=== PATIENT | male | born 1960 | race Caucasian/White ===

== ENCOUNTER 2016-12-15 12:26 | Inpatient (IN) | payer OTHER ==
[2016-12-15 15:21] VITALS: BMI 30.7
--- NOTE | 2016-12-15 18:33 | HP ---
CIWA Score - CIWA Score Nausea/Vomitin-Mild Nausea/No Vomiting Muscle Tremors: 4-Moderate,w/Arms Extend Anxiety: 4-Mod. Anxious/Guarded Agitation: 4-Moderately Restless Paroxysmal Sweats: 1-Minimal Palms Moist Orientation: 1-Uncertain about Date Tacttile Disturbances: 0-None Auditory Disturbances: 0-None Visual Disturbances: 0-None Headache: 0-None Present CIWA-Ar Total Score: 15 Admission ROS S - HPI Chief Complaint: withdrawal sx Allergies/Adverse Reactions: Allergies Allergy/AdvReac Type Severity Reaction Status Date / Time aspirin Allergy Severe Hives Verified 12/15/16 17:11 fish derived Allergy Severe Hives Verified 12/15/16 18:50 shellfish derived Allergy Severe Hives Verified 12/15/16 18:50 seafood Allergy Severe Hives Uncoded 12/15/16 17:11 History of Present Illness: 56 years old male with long history of alcohol dependence, cirrhosis of liver, methadone program 70 mg diabetes II hypertension, asthma arthritis knees chronic chest pain, lesion both legs, denies mental illness is admitted to detox Exam Limitations: No Limitations - Ebola screening Have you traveled outside of the country in the last 21 days: No Have you had contact with anyone from an Ebola affected area: No Have you been sick,other than usual withdrawal symptoms: No Do you have a fever: No - Review of Systems Constitutional: Chills, Changes in sleep, Weight Stable EENT: reports: Other (need eye glasses) Respiratory: reports: SOB with Exertion, Productive cough Cardiac: reports: Chest Pain (chronic chest pain since 1999) GI: reports: Nausea, Poor Fluid Intake, Indigestion, Abdominal cramping : reports: Dysuria Musculoskeletal: reports: Back Pain, Joint Pain, Muscle Pain Integumentary: reports: Lesions (both legs venous stasis) Neuro: reports: Numbness, Tingling (legs), Tremors, Weakness (legs) Endocrine: reports: No Symptoms Reported Psychiatric: reports: Judgement Intact, Mood/Affect Appropiate Other Systems: Reviewed and Negative Patient History - Patient Medical History Hx Anemia: No Hx Asthma: Yes Hx Chronic Obstructive Pulmonary Disease (COPD): No Hx Cancer: No Hx Cardiac Disorders: No (angiogram ) Hx Congestive Heart Failure: No Hx Hypertension: Yes Hx Hypercholesterolemia: No Hx Pacemaker: No HX Cerebrovascular Accident: No Hx Seizures: No Hx Dementia: No Hx Diabetes: Yes Hx Gastrointestinal Disorders: No Hx Liver Disease: Yes Hx Genitourinary Disorders: No Hx Sexually Transmitted Disorders: No Hx Renal Disease (ESRD): No Hx Thyroid Disease: No Hx Human Immunodeficiency Virus (HIV): No Hx Hepatitis C: No Hx Depression: No Hx Suicide Attempt: No Hx Bipolar Disorder: No Hx Schizophrenia: No - Patient Surgical History Past Surgical History: No Hx Neurologic Surgery: No Hx Cataract Extraction: No Hx Cardiac Surgery: No Hx Lung Surgery: No Hx Breast Surgery: No Hx Breast Biopsy: No Hx Abdominal Surgery: No Hx Appendectomy: No Hx Cholecystectomy: No Hx Genitourinary Surgery: No Hx Orthopedic Surgery: No - PPD History Previous Implant?: Yes Documented Results: Negative w/o proof Implanted On Prior R Admission?: No PPD to be Administered?: Yes - Smoking Cessation Smoking history: Never smoked Have you smoked in the past 12 months: No Cigars Per Day: 0 Initiated information on smoking cessation: No - Substance & Tx. History Hx Alcohol Use: Yes Hx Substance Use: Yes Substance Use Type: Alcohol, Opiates Hx Substance Use Treatment: Yes - Substances Abused Alcohol Route: Oral Frequency: Daily Amount used: 12oz 15 cans beer Age of first use: 17 Date of Last Use: 12/15/16 Family Disease History - Family Disease History Family Disease History: Diabetes: Mother, Sister, Other: Father (alcoholic ) Admission Physical Exam S - Vital Signs Vital Signs: Vital Signs - 24 hr 12/15/16 15:17 Temperature 98.6 F Pulse Rate 100 H Respiratory 20 Rate Blood Pressure 141/80 - Physical General Appearance: Yes: Appropriately Dressed, Mild Distress, Alcohol on Breath , Obese, Tremorous, Irritable, Sweating, Anxious HEENTM: Yes: Hearing grossly Normal, Normal ENT Inspection, Normocephalic, Normal Voice Respiratory: Yes: Chest Non-Tender, Lungs Clear, Normal Breath Sounds, No Respiratory Distress, No Accessory Muscle Use Neck: Yes: Supple, Trachea in good position Breast: Yes: Breasts Symetrical Cardiology: Yes: Regular Rhythm, S1, S2, Tachycardia Abdominal: Yes: Non Tender, Soft Genitourinary: Yes: Within Normal Limits Back: Yes: Normal Inspection Musculoskeletal: Yes: full range of Motion, Gait Steady (cane), Back pain, Muscle Pain (knees) Extremities: Yes: Normal Range of Motion, Non-Tender, Tremors Neurological: Yes: Alert, Motor Strength 5/5, Normal Mood/Affect, Normal Response Integumentary: Yes: Dry, Warm Lymphatic: Yes: Within Normal Limits - Diagnostic (1) Alcohol dependence with uncomplicated withdrawal Current Visit: Yes Status: Acute (2) Methadone maintenance therapy patient Current Visit: Yes Status: Acute Comment: 70 mg verification pending (3) Chronic pancreatitis Current Visit: Yes Status: Chronic Qualifiers: Pancreatitis type: alcohol induced Qualified Code(s): K86.0 - Alcohol-induced chronic pancreatitis (4) Diabetes mellitus, type II, insulin dependent Current Visit: Yes Status: Acute (5) Hypertension Current Visit: Yes Status: Acute Qualifiers: Hypertension type: essential hypertension Qualified Code(s): I10 - Essential (primary) hypertension (6) Neuropathy Current Visit: Yes Status: Acute (7) Use of cane as ambulatory aid Current Visit: Yes Status: Chronic (8) Asthma Current Visit: Yes Status: Acute Qualifiers: Asthma severity: mild intermittent Asthma complication type: with status asthmaticus Qualified Code(s): J45.22 - Mild intermittent asthma with status asthmaticus (9) Cirrhosis of liver Current Visit: Yes Status: Chronic Qualifiers: Hepatic cirrhosis type: alcoholic cirrhosis (10) GERD (gastroesophageal reflux disease) Current Visit: Yes Status: Acute Qualifiers: Esophagitis presence: without esophagitis Qualified Code(s): K21.9 - Gastro-esophageal reflux disease without esophagitis (11) Venous stasis dermatitis Current Visit: Yes Status: Acute Qualifiers: Laterality: bilateral Qualified Code(s): I87.2 - Venous insufficiency (chronic) (peripheral) (12) Chronic stable angina Current Visit: Yes Status: Chronic (13) Arthritis of both knees Current Visit: Yes Status: Acute Cleared for Admission BHS - Detox or Rehab [facility] Level of Care: Medically Managed Detox Regimen/Protocol: Librium [facility] Breath Alcohol Content Breath Alcohol Content: 0.059 Urine Drug Screen - Results Drug Screen Negative: No Urine Drug Screen Results: OPI-Opiates, MTD-Methadone
[2016-12-15] MEDS ORDERED: diphenhydrAMINE HCL 50 MG CAPSULE PO PRN (18:38)
[2016-12-15] MEDS ORDERED: guaiFENesin/D-METHORPHAN HB 10 ML UNIT-DOSE CUPS PO PRN (18:38)
[2016-12-15] MEDS ORDERED: MAGNESIUM CITRATE 300 ML BOTTLE PO PRN (18:38)
[2016-12-15] MEDS ORDERED: MAGNESIUM HYDROX 2400MG/30ML ORAL SUSPENSION 30 ML CUP PO PRN (18:38)
[2016-12-15] MEDS ORDERED: MENTHOL/PHENOL 1 EACH UD MM PRN (18:38)
[2016-12-15] MEDS ORDERED: LOPERAMIDE HCL 2 MG CAPSULE PO PRN (18:38)
[2016-12-15] MEDS ORDERED: P-EPHED 60MG/TRIPROLIDI 2.5MG TABLET PO PRN (18:38)
[2016-12-15] MEDS ORDERED: MAG HYDROX/AL HYDROX/SIMETH 30 ML UNIT-DOSE CUP PO PRN (18:38)
[2016-12-15] MEDS ORDERED: NITROGLYCERIN SUBLINGUAL 1/150 0.4 MG TAB SL PRN (18:43)
[2016-12-15] MEDS ORDERED: ALBUTEROL SO4 6.7 GM HFA INHALER IH PRN (18:44)
[2016-12-15] MEDS ORDERED: COLLOIDAL OATMEAL 1 BAR EACH TP PRN (18:45)
[2016-12-15] MEDS: chlordiazePOXIDE HCL 25 MG CAPSULE PO PRN (19:35)
[2016-12-15] MEDS ORDERED: NAPROXEN 500 MG TABLET (FP) PO SCH (22:00)
[2016-12-15] MEDS: GABAPENTIN 100 MG CAPSULE (FP) PO SCH (22:19)
[2016-12-15] MEDS: TAMSULOSIN HCL 0.4 MG CAP.ER.24H (FP) PO SCH (22:20)
[2016-12-15] MEDS: RANITIDINE HCL 150 MG TABLET (FP) PO SCH (22:20)
[2016-12-15] MEDS: chlordiazePOXIDE HCL 25 MG CAPSULE PO SCH (22:20)
[2016-12-15] MEDS: THIAMINE HCL 100 MG TABLET (FP) PO SCH (22:20)
[2016-12-15] MEDS: INSULIN DETEMIR 100 UNITS/ML MDV SQ SCH (22:22)
[2016-12-15] MEDS: INSULIN SLIDING SCALE (NOVOLOG) 1 VIAL SQ SCH (22:23)
[2016-12-15] MEDS: KETOCONAZOLE 2% CREAM - 60GM TUBE TP SCH (22:23)
[2016-12-16] MEDS: chlordiazePOXIDE HCL 25 MG CAPSULE PO SCH ×4 (05:15→22:18)
[2016-12-16] MEDS: GABAPENTIN 100 MG CAPSULE (FP) PO SCH ×3 (06:48→22:16)
[2016-12-16] MEDS: INSULIN SLIDING SCALE (NOVOLOG) 1 VIAL SQ SCH ×4 (07:27→22:19)
[2016-12-16] MEDS ORDERED: METHADONE HCL 10 MG TABLET PO SCH (07:30)
[2016-12-16] MEDS ORDERED: METHADONE HCL 40 MG DISPERSABLE TABLET ONE (09:12)
[2016-12-16] MEDS ORDERED: METHADONE HCL 10 MG TABLET ONE (09:12)
--- NOTE | 2016-12-16 09:48 | PN ---
S CIWA - CIWA Score Nausea/Vomitin-No Nausea/No Vomiting Muscle Tremors: 4-Moderate,w/Arms Extend Anxiety: 3 Agitation: 4-Moderately Restless Paroxysmal Sweats: 3 Orientation: 0-Oriented Tacttile Disturbances: 0-None Auditory Disturbances: 0-None Visual Disturbances: 0-None Headache: 2-Mild CIWA-Ar Total Score: 16 BHS Progress Note (SOAP) Subjective: irritable agitation sweats interrupted sleep tired weak Objective: 12/16/16 10:27 Vital Signs Temperature 98.6 F 12/16/16 06:12 Pulse Rate 95 H 12/16/16 06:12 Respiratory Rate 20 12/16/16 06:12 Blood Pressure 127/65 12/16/16 06:12 O2 Sat by Pulse Oximetry (%) Laboratory Tests 12/15/16 12/15/16 12/16/16 17:24 21:02 06:00 WBC 3.1 L RBC 3.56 L Hgb 11.7 Hct 35.3 L MCV 99.1 H MCHC 33.3 RDW 14.7 Plt Count 64 L MPV 9.2 POC Glucometer 217 195 12/16/16 06:37 WBC RBC Hgb Hct MCV MCHC RDW Plt Count MPV POC Glucometer 106 awake/alert ambulating no acute distress labs pending Assessment: 12/16/16 10:27 withdrawal sx Plan: continue detox increase fluids labs pending
[2016-12-16 09:58] LABS: MCHC 33.3 g/dl (32.0-35.9); MEAN CELL VOLUME 99.1 fl (80-96); MEAN PLT VOLUME 9.2 fl (7.5-11.1); PLATELET COUNT 64 K/MM3 (134-434); RDW 14.7 % (11.9-15.9); WHITE BLOOD COUNT 3.1 K/mm3 (4.0-10.0)
[2016-12-16] MEDS: amLODIPine BESYLATE 2.5 MG TABLET (FP) PO SCH (10:20)
[2016-12-16] MEDS: KETOCONAZOLE 2% CREAM - 60GM TUBE TP SCH ×2 (10:20→22:19)
[2016-12-16] MEDS: RANITIDINE HCL 150 MG TABLET (FP) PO SCH ×2 (10:20→22:16)
[2016-12-16] MEDS: METHADONE 40 MG, METHADONE 30 MG PO SCH (10:21)
[2016-12-16] MEDS: LIDOCAINE HCL 5% TOP OINTMENT 50 GM TUBE TP SCH (10:22)
[2016-12-16 10:25] LABS: ALBUMIN 2.6 g/dl (3.4-5.0); ALK PHOS 212 U/L (45-117); ANION GAP 12 (8-16); BILIRUBIN,TOTAL 1.3 mg/dL (0.2-1.0); CALCIUM 8.1 mg/dL (8.5-10.1); CO2 23 mmol/L (21-32); CREATININE 0.7 mg/dL (0.7-1.3); GLUCOSE,RANDOM 281 mg/dL (74-106); SGOT/AST 99 U/L (15-37); SGPT/ALT 63 U/L (12-78); TOT PROT 8.1 g/dl (6.4-8.2)
[2016-12-16] MEDS: PRENATAL VITAMINS W/ FOLIC ACID TABLET (FP) PO SCH (10:25)
[2016-12-16] MEDS ORDERED: INSULIN (NOVOLOG) ASPART 100 UNITS/ML 10ML VIAL ONE ×3 (11:33→22:04)
--- NOTE | 2016-12-16 12:29 | CONSULT ---
[facility] Psychiatric Consult - Data Date of interview: 12/16/16 Admission source: [facility] Identifying data: First admission [facility] Care for this 56 y/o male seeking detox treatment for alcohol and opioid dependence.Patient is ,a father of six,domiciled,unemployed and supported on SSI benefits. Substance Abuse History: - Smoking Cessation. Smoking history: Never smoked. Have you smoked in the past 12 months: No. Cigars Per Day: 0. Initiated information on smoking cessation: No. - Substance & Tx. History. Hx Alcohol Use: Yes. Hx Substance Use: Yes. Substance Use Type: Alcohol, Opiates. Hx Substance Use Treatment: Yes. - Substances Abused. Alcohol. Route: Oral. Frequency: Daily. Amount used: 12oz 15 cans beer. Age of first use: 17. Date of Last Use: 12/15/16. Confirmed by patient. Medical History: Bronchial asthma,diabetes mellitus,hypertension,GERD,arthritis (both knees),cirrhosis of the liver,psoriasis,benign prostatic hyperplasia (self -report) and chronic pancreatitis.Ambulates with a cane. Psychiatric History: Patient admits to one psychiatric hospitalization (1995) at [facility] in [facility].Diagnosed with MDD.Not on any medication other than methadone (70 mg/day) from the [facility] MMTP program located in [place].Mr Hernandez denies history of suicide attempts. Physical/Sexual Abuse/Trauma History: Patient denies. Additional Comment: Urine Drug Screen Results: OPI-Opiates, MTD-Methadone.Noted. Mental Status Exam - Mental Status Exam Alert and Oriented to: Time, Place, Person Cognitive Function: Good Patient Appearance: Well Groomed Mood: Hopeful, Euthymic Affect: Appropriate, Normal Range Patient Behavior: Fatigued, Appropriate, Cooperative Speech Pattern: Clear, Appropriate Voice Loudness: Normal Thought Process: Intact, Goal Oriented Thought Disorder: Not Present Hallucinations: Denies Suicidal Ideation: Denies Homicidal Ideation: Denies Insight/Judgement: Poor Sleep: Poorly, Difficulty falling asleep (declines seroquel,ambien and trazodone ) Muscle strength/Tone: Normal Gait/Station: Other (moves around with a cane) Psychiatric Findings - Problem List ([place] 1, 2,3) (1) Alcohol dependence with uncomplicated withdrawal Current Visit: Yes Status: Acute (2) Opioid dependence on agonist therapy Current Visit: Yes Status: Acute (3) Arthritis of both knees Current Visit: Yes Status: Chronic (4) Asthma Current Visit: Yes Status: Chronic Qualifiers: Asthma severity: mild intermittent Asthma complication type: with status asthmaticus Qualified Code(s): J45.22 - Mild intermittent asthma with status asthmaticus (5) Diabetes mellitus, type II, insulin dependent Current Visit: Yes Status: Chronic (6) GERD (gastroesophageal reflux disease) Current Visit: Yes Status: Chronic Qualifiers: Esophagitis presence: without esophagitis Qualified Code(s): K21.9 - Gastro-esophageal reflux disease without esophagitis (7) Hypertension Current Visit: Yes Status: Chronic Qualifiers: Hypertension type: essential hypertension Qualified Code(s): I10 - Essential (primary) hypertension (8) Neuropathy Current Visit: Yes Status: Chronic (9) Chronic pancreatitis Current Visit: Yes Status: Chronic Qualifiers: Pancreatitis type: alcohol induced Qualified Code(s): K86.0 - Alcohol-induced chronic pancreatitis (10) Cirrhosis of liver Current Visit: Yes Status: Chronic Qualifiers: Hepatic cirrhosis type: alcoholic cirrhosis (11) Use of cane as ambulatory aid Current Visit: Yes Status: Chronic (12) Insomnia Current Visit: Yes Status: Acute - Initial Treatment Plan Initial Treatment Plan: Psychoedcation.Detoxification.Remeron 7.5 mg po hs.Side effects/benefits discussed with patient.Agreed with careplan.Observation.
[2016-12-16] MEDS: THIAMINE HCL 100 MG TABLET (FP) PO SCH (22:16)
[2016-12-16] MEDS: MIRTAZAPINE 15 MG TABLET (FP) PO SCH (22:16)
[2016-12-16] MEDS: TAMSULOSIN HCL 0.4 MG CAP.ER.24H (FP) PO SCH (22:16)
[2016-12-16] MEDS: INSULIN DETEMIR 100 UNITS/ML MDV SQ SCH (22:17)
--- NOTE | 2016-12-16 23:39 | EKG ---
Test Reason : Blood Pressure : / mmHG Vent. Rate : 081 BPM Atrial Rate : 081 BPM P-R Int : 132 ms QRS Dur : 084 ms QT Int : 430 ms P-R-T Axes : 053 021 022 degrees QTc Int : 499 ms NORMAL SINUS RHYTHM PROLONGED QT ABNORMAL ECG NO PREVIOUS ECGS AVAILABLE Confirmed by MORENA CORNELIUS MD ([id number]) on 12/16/2016 11:39:02 PM Referred By: Confirmed By:MORENA CORNELIUS MD
[2016-12-17] MEDS ORDERED: METHADONE HCL 10 MG TABLET ONE (04:13)
[2016-12-17] MEDS ORDERED: METHADONE HCL 40 MG DISPERSABLE TABLET ONE (04:13)
[2016-12-17] MEDS: chlordiazePOXIDE HCL 25 MG CAPSULE PO SCH ×3 (05:47→17:55)
[2016-12-17] MEDS: METHADONE 40 MG, METHADONE 30 MG PO SCH (05:47)
[2016-12-17] MEDS: GABAPENTIN 100 MG CAPSULE (FP) PO SCH ×3 (05:47→22:14)
[2016-12-17] MEDS ORDERED: INSULIN (NOVOLOG) ASPART 100 UNITS/ML 10ML VIAL ONE ×4 (07:38→22:13)
[2016-12-17] MEDS: INSULIN SLIDING SCALE (NOVOLOG) 1 VIAL SQ SCH ×4 (07:39→22:13)
[2016-12-17] MEDS: chlordiazePOXIDE HCL 25 MG CAPSULE PO PRN (09:32)
[2016-12-17] MEDS: PRENATAL VITAMINS W/ FOLIC ACID TABLET (FP) PO SCH (09:32)
[2016-12-17] MEDS: RANITIDINE HCL 150 MG TABLET (FP) PO SCH ×2 (09:32→22:14)
[2016-12-17] MEDS: amLODIPine BESYLATE 2.5 MG TABLET (FP) PO SCH (09:32)
[2016-12-17] MEDS: LIDOCAINE HCL 5% TOP OINTMENT 50 GM TUBE TP SCH (09:35)
[2016-12-17] MEDS: KETOCONAZOLE 2% CREAM - 60GM TUBE TP SCH ×2 (09:36→22:16)
[2016-12-17] MEDS ORDERED: ONDANSETRON *ODT* 4 MG TABLET SL PRN (10:17)
[2016-12-17] MEDS: TAMSULOSIN HCL 0.4 MG CAP.ER.24H (FP) PO SCH (22:14)
[2016-12-17] MEDS: THIAMINE HCL 100 MG TABLET (FP) PO SCH (22:14)
[2016-12-17] MEDS: MIRTAZAPINE 15 MG TABLET (FP) PO SCH (22:14)
[2016-12-17] MEDS: INSULIN DETEMIR 100 UNITS/ML MDV SQ SCH (22:15)
[2016-12-17] MEDS: chlordiazePOXIDE 5 MG CAPSULE PO SCH (22:25)
[2016-12-18] MEDS ORDERED: METHADONE HCL 40 MG DISPERSABLE TABLET ONE (04:21)
[2016-12-18] MEDS ORDERED: METHADONE HCL 10 MG TABLET ONE (04:22)
[2016-12-18] MEDS: chlordiazePOXIDE 5 MG CAPSULE PO SCH ×3 (04:48→18:11)
[2016-12-18] MEDS: GABAPENTIN 100 MG CAPSULE (FP) PO SCH ×3 (06:06→22:42)
[2016-12-18] MEDS: METHADONE 40 MG, METHADONE 30 MG PO SCH (06:06)
[2016-12-18] MEDS ORDERED: INSULIN (NOVOLOG) ASPART 100 UNITS/ML 10ML VIAL ONE ×4 (07:26→23:10)
[2016-12-18] MEDS: INSULIN SLIDING SCALE (NOVOLOG) 1 VIAL SQ SCH ×4 (07:29→22:46)
--- NOTE | 2016-12-18 09:52 | PN ---
S Progress Note (SOAP) Subjective: ALERT,IRRITABLE,INTERRUPTED SLEEP,TREMOR Objective: 12/18/16 09:51 Vital Signs Temperature 98.6 F 12/18/16 06:15 Pulse Rate 107 H 12/18/16 06:15 Respiratory Rate 18 12/18/16 06:15 Blood Pressure 153/83 12/18/16 06:15 O2 Sat by Pulse Oximetry (%) Laboratory Last Values WBC 3.1 K/mm3 (4.0-10.0) L 12/16/16 06:00 RBC 3.56 M/mm3 (4.00-5.60) L 12/16/16 06:00 Hgb 11.7 GM/dL (11.7-16.9) 12/16/16 06:00 Hct 35.3 % (35.4-49) L 12/16/16 06:00 MCV 99.1 fl (80-96) H 12/16/16 06:00 MCHC 33.3 g/dl (32.0-35.9) 12/16/16 06:00 RDW 14.7 % (11.9-15.9) 12/16/16 06:00 Plt Count 64 K/MM3 (134-434) L 12/16/16 06:00 MPV 9.2 fl (7.5-11.1) 12/16/16 06:00 Sodium 135 mmol/L (136-145) L 12/16/16 06:00 Potassium 3.7 mmol/L (3.5-5.1) 12/16/16 06:00 Chloride 100 mmol/L (98-107) 12/16/16 06:00 Carbon Dioxide 23 mmol/L (21-32) 12/16/16 06:00 Anion Gap 12 (8-16) 12/16/16 06:00 BUN 10 mg/dL (7-18) 12/16/16 06:00 Creatinine 0.7 mg/dL (0.7-1.3) 12/16/16 06:00 Creat Clearance w eGFR > 60 (>60) 12/16/16 06:00 POC Glucometer 289 UNITS (()) 12/18/16 04:44 Random Glucose 281 mg/dL (74-106) H 12/16/16 06:00 Calcium 8.1 mg/dL (8.5-10.1) L 12/16/16 06:00 Total Bilirubin 1.3 mg/dL (0.2-1.0) H 12/16/16 06:00 AST 99 U/L (15-37) H 12/16/16 06:00 ALT 63 U/L (12-78) 12/16/16 06:00 Alkaline Phosphatase 212 U/L (45-117) H 12/16/16 06:00 Total Protein 8.1 g/dl (6.4-8.2) 12/16/16 06:00 Albumin 2.6 g/dl (3.4-5.0) L 12/16/16 06:00 RPR Titer Nonreactive (NONREACTIVE) 12/16/16 06:00 Assessment: 12/18/16 09:51 WITHDRAWAL SYMPTOM Plan: CONTINUE DETOX,BGM MONITORING,DISCHARGE IN AM
[2016-12-18] MEDS: RANITIDINE HCL 150 MG TABLET (FP) PO SCH ×2 (10:22→22:42)
[2016-12-18] MEDS: PRENATAL VITAMINS W/ FOLIC ACID TABLET (FP) PO SCH (10:22)
[2016-12-18] MEDS: KETOCONAZOLE 2% CREAM - 60GM TUBE TP SCH ×2 (10:23→22:40)
[2016-12-18] MEDS: LIDOCAINE HCL 5% TOP OINTMENT 50 GM TUBE TP SCH (10:23)
[2016-12-18] MEDS: amLODIPine BESYLATE 2.5 MG TABLET (FP) PO SCH (11:09)
[2016-12-18 21:00] LABS: URINE APPEARANCE CLEAR; URINE BILIRUBIN NEGATIVE (NEGATIVE); URINE COLOR YELLOW; URINE GLUCOSE (UA) 3+ (NEGATIVE); URINE KETONE NEGATIVE (NEGATIVE); URINE LEUK ESTERASE NEGATIVE (NEGATIVE); URINE NITRITE NEGATIVE (NEGATIVE); URINE PROTEIN NEGATIVE (NEGATIVE); URINE UROBILINOGEN NEGATIVE E.U./dl (0.2-1.0)
[2016-12-18 21:06] LABS: URINE BLOOD 1+ (NEGATIVE)
[2016-12-18 21:13] LABS: URINE RBC 1 /hpf (0-3); URINE WBC 1 /hpf (3-5)
[2016-12-18] MEDS: TAMSULOSIN HCL 0.4 MG CAP.ER.24H (FP) PO SCH (22:40)
[2016-12-18] MEDS: MIRTAZAPINE 15 MG TABLET (FP) PO SCH (22:40)
[2016-12-18] MEDS: chlordiazePOXIDE HCL 10 MG CAPSULE PO SCH (22:40)
[2016-12-18] MEDS: THIAMINE HCL 100 MG TABLET (FP) PO SCH (22:40)
[2016-12-18] MEDS: INSULIN DETEMIR 100 UNITS/ML MDV SQ SCH (23:26)
[2016-12-19] MEDS ORDERED: METHADONE HCL 40 MG DISPERSABLE TABLET ONE (04:13)
[2016-12-19] MEDS ORDERED: METHADONE HCL 10 MG TABLET ONE (04:13)
[2016-12-19] MEDS: chlordiazePOXIDE HCL 10 MG CAPSULE PO SCH ×2 (05:10→10:38)
[2016-12-19] MEDS: METHADONE 40 MG, METHADONE 30 MG PO SCH (06:40)
[2016-12-19] MEDS: GABAPENTIN 100 MG CAPSULE (FP) PO SCH (06:40)
[2016-12-19] MEDS ORDERED: INSULIN (NOVOLOG) ASPART 100 UNITS/ML 10ML VIAL ONE ×2 (07:29→11:19)
[2016-12-19] MEDS: INSULIN SLIDING SCALE (NOVOLOG) 1 VIAL SQ SCH ×2 (07:38→11:20)
--- NOTE | 2016-12-19 08:43 | PN ---
S Progress Note (SOAP) Subjective: ALERT,NO COMPLAINT Objective: 12/19/16 08:41 Vital Signs Temperature 98.2 F 12/19/16 06:34 Pulse Rate 89 12/19/16 06:34 Respiratory Rate 16 12/19/16 06:34 Blood Pressure 129/66 12/19/16 06:34 O2 Sat by Pulse Oximetry (%) BGM 289 Assessment: 12/19/16 08:42 DETOX COMPLETED,NO WITHDRAWAL SYMPTOM Plan: DISCHARGE TODAY,FOLLOW UP WITH AFTER CARE PROGRAM ARRANGEMENT AND PMD FOR MEDICAL PROBLEM
--- NOTE | 2016-12-19 08:44 | DS ---
[facility] Detox Discharge Summary Admission Date: 12/15/16 Discharge Date: 12/19/16 - History Present History: Alcohol Dependence, Opioid Dependence, MMTP Additional Comments: FOLLOW UP WITH AFTER CARE PROGRAM ARRANGEMENT AND PMD FOR MEDICAL PROBLEM Pertinent Past History: CHRONIC PANCREATITIS TYPE 2 DM HYPERTENSION ASTHMA NEUROPATHY USE CAN AMBULATORY AID - Physical Exam Results Vital Signs: Vital Signs Temperature 98.2 F 12/19/16 06:34 Pulse Rate 89 12/19/16 06:34 Respiratory Rate 16 12/19/16 06:34 Blood Pressure 129/66 12/19/16 06:34 O2 Sat by Pulse Oximetry (%) Pertinent Admission Physical Exam Findings: WITHDRAWAL SYMPTOM - Treatment Hospital Course: Detox Protocol Followed, Detoxed Safely, Responded well, Discharged Condition Good Patient has Accepted a Rehab Referral to: DECLINED - Medication Discharge Medications: Ambulatory Orders Insulin (Novolog) [Novolog Flexpen] 0 units SQ ACHS 12/15/16 Insulin Glargine,Hum.rec.anlog [Lantus Solostar PEN (NF)] 50 units SQ DAILY 11/28 Ketoconazole 2% Cream [Nizoral 2% Cream -] 1 applic TP BID 12/15/16 Omeprazole 20 mg PO DAILY 12/15/16 Mirtazapine [Remeron -] 15 mg PO DAILY #30 tablet 12/16/16 Albuterol Sulfate Inhaler - [Ventolin HFA Inhaler -] 2 puff IH Q4H PRN #1 inhaler 12/19/16 Amlodipine Besylate [Norvasc -] 2.5 mg PO DAILY #30 tab 12/19/16 Gabapentin [Neurontin -] 300 mg PO TID #90 tab 12/19/16 Tamsulosin HCl [Flomax -] 0.4 mg PO HS #30 tab 12/19/16 - AMA Did Patient Leave Against Medical Advice: No
[2016-12-19 09:52] VITALS: BP 134/83; PULSE 78; TEMP 97.9
[2016-12-19] MEDS: PRENATAL VITAMINS W/ FOLIC ACID TABLET (FP) PO SCH (10:38)
[2016-12-19] MEDS: RANITIDINE HCL 150 MG TABLET (FP) PO SCH (10:38)
[2016-12-19] MEDS: amLODIPine BESYLATE 2.5 MG TABLET (FP) PO SCH (10:38)
[2016-12-19] MEDS: LIDOCAINE HCL 5% TOP OINTMENT 50 GM TUBE TP SCH (10:40)
[2016-12-19] MEDS: KETOCONAZOLE 2% CREAM - 60GM TUBE TP SCH (10:41)
== END 2016-12-19 13:05 | disposition home or self-care (01) | DRG 773 ==
LOC: YASAS 12:26 → Y6N 18:54
PROVIDERS: ADMIT Internal Medicine Addiction Medicine; ATTEND Internal Medicine Addiction Medicine
PROC: HZ2ZZZZ Detoxification Services for Substance Abuse Treatment (ICD-10-PCS; principal; 2016-12-19)
DX: F11.20 Opioid dependence, uncomplicated (principal); F10.230 Alcohol dependence with withdrawal, uncomplicated; G47.00 Insomnia, unspecified; J45.22 Mild intermittent asthma with status asthmaticus; I25.119 Atherosclerotic heart disease of native coronary artery with unspecified angina pectoris; I10 Essential (primary) hypertension; E11.9 Type 2 diabetes mellitus without complications; Z79.4 Long term (current) use of insulin; K62.9 Disease of anus and rectum, unspecified; K21.9 Gastro-esophageal reflux disease without esophagitis; K86.0 Alcohol-induced chronic pancreatitis; K70.30 Alcoholic cirrhosis of liver without ascites; I87.2 Venous insufficiency (chronic) (peripheral); M13.862 Other specified arthritis, left knee; M13.861 Other specified arthritis, right knee; R26.2 Difficulty in walking, not elsewhere classified
CPT/HCPCS: 36415; 80053; 81003; 81015; 85027; 86593; 93005; 93010

== ENCOUNTER 2017-06-26 07:47 | Inpatient (IN) | payer OTHER ==
[2017-06-26 10:33] VITALS: BMI 32.1
--- NOTE | 2017-06-26 13:36 | HP ---
CIWA Score - CIWA Score Nausea/Vomitin Muscle Tremors: 4-Moderate,w/Arms Extend Anxiety: 3 Agitation: 4-Moderately Restless Paroxysmal Sweats: 3 Orientation: 0-Oriented Tacttile Disturbances: 1-Very Mild Itch/Numbness Auditory Disturbances: 0-None Visual Disturbances: 0-None Headache: 1-Very Mild CIWA-Ar Total Score: 19 Admission ROS BHS - HPI Chief Complaint: alcohol withdrawal sx Allergies/Adverse Reactions: Allergies Allergy/AdvReac Type Severity Reaction Status Date / Time aspirin Allergy Severe Hives Verified 06/26/17 10:35 seafood Allergy Severe Hives Uncoded 06/26/17 10:35 History of Present Illness: 56 yo m withh/o opioid dependence on MMTP 15mg dialy LDM today , chronic alcoholism was lasst detoxed [facility] recieved some libirum but signed out AMA and did not compelte detox. PMHX hep c, cirrhosis w ascites , astma, trauma left ankle s/p surgery, depression ,anxiety, insomnia, HTN, DM taking meds and vitiamins. h/o alcohol withdrawwl seizures 6 months ago but gives h/o epilepsy as child , no h/o DTS, no suicide attempts no suicidal ideations. Would like to complete detox to go to rehab, has his own apartmetn where he lives alone Exam Limitations: No Limitations - Ebola screening Have you traveled outside of the country in the last 21 days: No Have you had contact with anyone from an Ebola affected area: No Have you been sick,other than usual withdrawal symptoms: No Do you have a fever: No - Review of Systems Constitutional: Chills, Diaphoresis, Weight Stable EENT: reports: No Symptoms Reported Respiratory: reports: No Symptoms reported Cardiac: reports: No Symptoms Reported GI: reports: Nausea, Poor Appetite, Poor Fluid Intake, Abdominal cramping ( ascites s/p paracentesis - signed out ama) : reports: No Symptoms Reported Integumentary: reports: Flushing, Sweating Neuro: reports: Headache, Numbness, Seizure, Tingling, Tremors, Weakness, Unsteady Gait Endocrine: reports: No Symptoms Reported Hematology: reports: No Symptoms Reported Psychiatric: reports: Judgement Intact, Mood/Affect Appropiate, Orientated x3, Anxious, Depressed Other Systems: Reviewed and Negative Patient History - Patient Medical History Hx Anemia: No Hx Asthma: Yes Hx Chronic Obstructive Pulmonary Disease (COPD): No Hx Cancer: No Hx Cardiac Disorders: Yes (angina) Hx Congestive Heart Failure: No Hx Hypertension: Yes Hx Hypercholesterolemia: No Hx Pacemaker: No HX Cerebrovascular Accident: No Hx Seizures: Yes (alcohol related-last episode was in 01/2017) Hx Dementia: No Hx Diabetes: Yes (IDDM) Hx Gastrointestinal Disorders: Yes (acid reflux) Hx Liver Disease: Yes Hx Genitourinary Disorders: No Hx Sexually Transmitted Disorders: No Hx Renal Disease (ESRD): No Hx Thyroid Disease: No Hx Human Immunodeficiency Virus (HIV): No Hx Hepatitis C: Yes Hx Depression: Yes (not on any meds) Hx Suicide Attempt: No Hx Bipolar Disorder: No Hx Schizophrenia: No - Patient Surgical History Past Surgical History: Yes Hx Neurologic Surgery: No Hx Cataract Extraction: No Hx Cardiac Surgery: No Hx Lung Surgery: No Hx Breast Surgery: No Hx Breast Biopsy: No Hx Abdominal Surgery: No Hx Appendectomy: No Hx Cholecystectomy: No Hx Genitourinary Surgery: No Hx Section: No Hx Orthopedic Surgery: Yes (fx, left ankle) Anesthesia Reaction: No - PPD History Previous Implant?: Yes Documented Results: Negative w/proof Implanted On Prior R Admission?: Yes Date: 12/17/16 Results: 0 mm PPD to be Administered?: No - Reproductive History Patient is a Female of Child Bearing Age (11 -55 yrs old): No Patient : No - Smoking Cessation Smoking history: Former smoker Have you smoked in the past 12 months: No Aproximately how many cigarettes per day: 1,993 If you are a former smoker, when did you quit?: 1992 Cigars Per Day: 0 Hx Chewing Tobacco Use: No Initiated information on smoking cessation: No 'Breaking Loose' booklet given: 06/26/17 - Substance & Tx. History Hx Alcohol Use: Yes Hx Substance Use: Yes Substance Use Type: Alcohol, Heroin, Opiates, Prescribed Hx Substance Use Treatment: Yes (MMTP) - Substances Abused Alcohol-beer Route: Oral Frequency: Daily Amount used: 6-10 (22 oz.) Age of first use: 15 Date of Last Use: 06/25/17 Family Disease History - Family Disease History Family Disease History: Diabetes: Mother, Sister, Other: Father (alcoholic ) Admission Physical Exam BHS - Vital Signs Vital Signs: Vital Signs - 24 hr 06/26/17 10:31 Temperature 96.4 F L Pulse Rate 107 H Respiratory 20 Rate Blood Pressure 148/71 - Physical General Appearance: Yes: Nourished, Appropriately Dressed, Disheveled, Mild Distress, Obese, Tremorous, Irritable, Sweating, Anxious HEENTM: Yes: Within Normal Limits, EOMI, Hearing grossly Normal, Normal ENT Inspection, Normocephalic, Normal Voice, HOLGER, Pharynx Normal Respiratory: Yes: Within Normal Limits, Chest Non-Tender, Lungs Clear, Normal Breath Sounds, No Respiratory Distress, No Accessory Muscle Use Neck: Yes: Within Normal Limits, No masses,lesions,Nodules, Supple, Trachea in good position Breast: Yes: Breast Exam Deferred Cardiology: Yes: Within Normal Limits, Regular Rhythm, Regular Rate, S1, S2 Abdominal: Yes: Normal Bowel Sounds, Non Tender, Soft, Increased Bowel Sounds, Protuberent, Distended, Hernia (umbeilical), Surgical Scar Genitourinary: Yes: Within Normal Limits Back: Yes: Within Normal Limits, Normal Inspection Musculoskeletal: Yes: Within Normal Limits, full range of Motion Extremities: Yes: Normal Capillary Refill, Normal Inspection, Normal Range of Motion, Non-Tender, Tremors Neurological: Yes: import coordinator II-XII NML intact, Fully Oriented, Alert, Motor Strength 5/5, Normal Response Integumentary: Yes: Normal Color, Warm, Diaphoresis, Moist, Track Dunn (old on arms has not injected since 1995), Other (psoriasis on back and lower extremities bilaterally.) Lymphatic: Yes: Within Normal Limits - Addiitonal Findings: withdrawal sx - Diagnostic (1) Alcohol dependence with uncomplicated withdrawal Current Visit: Yes Status: Acute (2) Methadone maintenance therapy patient Current Visit: Yes Status: Chronic Comment: 70 mg verification pending (3) Arthritis of both knees Current Visit: No Status: Chronic (4) Asthma Current Visit: No Status: Chronic Qualifiers: Asthma severity: mild intermittent Asthma complication type: with status asthmaticus (5) Chronic pancreatitis Current Visit: No Status: Chronic Qualifiers: Pancreatitis type: alcohol induced Qualified Code(s): K86.0 - Alcohol-induced chronic pancreatitis; K86.0 - Alcohol-induced chronic pancreatitis; K86.0 - Alcohol-induced chronic pancreatitis; K86.0 - Alcohol- induced chronic pancreatitis (6) Chronic stable angina Current Visit: No Status: Chronic (7) Cirrhosis of liver Current Visit: No Status: Chronic Qualifiers: Hepatic cirrhosis type: alcoholic cirrhosis (8) Diabetes mellitus, type II, insulin dependent Current Visit: Yes Status: Acute (9) GERD (gastroesophageal reflux disease) Current Visit: No Status: Chronic Qualifiers: Esophagitis presence: without esophagitis Qualified Code(s): K21.9 - Gastro-esophageal reflux disease without esophagitis; K21.9 - Gastro- esophageal reflux disease without esophagitis; K21.9 - Gastro-esophageal reflux disease without esophagitis (10) Hypertension Current Visit: No Status: Chronic Qualifiers: Hypertension type: essential hypertension Qualified Code(s): I10 - Essential (primary) hypertension; I10 - Essential (primary) hypertension; I10 - Essential (primary) hypertension (11) Neuropathy Current Visit: No Status: Chronic (12) Use of cane as ambulatory aid Current Visit: Yes Status: Acute Cleared for Admission S - Detox or Rehab [facility] Level of Care: Medically Managed Detox Regimen/Protocol: Librium [facility] Breath Alcohol Content Breath Alcohol Content: 0 Urine Drug Screen - Results Drug Screen Negative: No Urine Drug Screen Results: BZO-Benzodiazepines, MTD-Methadone
[2017-06-26] MEDS ORDERED: MAGNESIUM CITRATE 300 ML BOTTLE PO PRN (13:41)
[2017-06-26] MEDS ORDERED: MAGNESIUM HYDROX 2400MG/30ML ORAL SUSPENSION 30 ML CUP PO PRN (13:41)
[2017-06-26] MEDS ORDERED: hydrOXYzine PAMOATE 50 MG CAPSULE (FP) PO PRN (13:41)
[2017-06-26] MEDS ORDERED: MAG HYDROX/AL HYDROX/SIMETH 30 ML UNIT-DOSE CUP PO PRN (13:41)
[2017-06-26] MEDS ORDERED: LOPERAMIDE HCL 2 MG CAPSULE PO PRN (13:41)
[2017-06-26] MEDS ORDERED: chlordiazePOXIDE HCL 25 MG CAPSULE PO PRN (13:41)
[2017-06-26] MEDS ORDERED: MENTHOL/PHENOL 1 EACH UD MM PRN (13:41)
[2017-06-26] MEDS ORDERED: P-EPHED 60MG/TRIPROLIDI 2.5MG TABLET PO PRN (13:41)
[2017-06-26] MEDS ORDERED: guaiFENesin/D-METHORPHAN HB 10 ML UNIT-DOSE CUPS PO PRN (13:41)
[2017-06-26] MEDS ORDERED: ALBUTEROL SO4 18 GM HFA INHALER IH PRN (13:44)
[2017-06-26] MEDS ORDERED: NITROGLYCERIN SUBLINGUAL 1/150 0.4 MG TAB SL PRN (13:44)
[2017-06-26] MEDS ORDERED: chlordiazePOXIDE HCL 25 MG CAPSULE PO ONE (15:01)
[2017-06-26] MEDS ORDERED: INSULIN SLIDING SCALE (NOVOLOG) 1 VIAL SQ SCH ×3 (16:30)
[2017-06-26] MEDS: chlordiazePOXIDE HCL 25 MG CAPSULE PO SCH ×2 (17:27→22:18)
[2017-06-26] MEDS: amLODIPine BESYLATE 5 MG TABLET (FP) PO SCH (17:27)
[2017-06-26] MEDS: FOLIC ACID 1 MG TABLET (FP) PO SCH (17:27)
[2017-06-26] MEDS: HYDROCORTISONE 1% TOPICAL CREAM 30 GM TUBE TP SCH (17:28)
[2017-06-26] MEDS: INSULIN SLIDING SCALE (NOVOLOG) 1 VIAL SQ SCH (17:31)
[2017-06-26 18:01] LABS: MCH 30.7 pg (25.7-33.7); MCHC 32.9 g/dl (32.0-35.9); MEAN CELL VOLUME 93.2 fl (80-96); RDW 15.9 % (11.9-15.9)
[2017-06-26 18:18] LABS: ALBUMIN 2.1 g/dl (3.4-5.0); ANION GAP 8 (8-16); CALCIUM 8.1 mg/dL (8.5-10.1); CO2 26 mmol/L (21-32); CREATININE 0.9 mg/dL (0.7-1.3); GLUCOSE,RANDOM 285 mg/dL (74-106); SGOT/AST 117 U/L (15-37); SGPT/ALT 54 U/L (12-78); WHITE BLOOD COUNT 1.8 K/mm3 (4.0-10.0)
[2017-06-26 18:19] LABS: ALK PHOS 164 U/L (45-117); BILIRUBIN,TOTAL 2.1 mg/dL (0.2-1.0); TOT PROT 7.4 g/dl (6.4-8.2)
[2017-06-26 18:50] LABS: PLATELET COMMENT2 NO CLOTTING DETECTED; PLATELET COMMENT3 UNABLE TO ENUMERATE; PLATELET ESTIMATE MARKEDLY DECREASED (NORMAL)
[2017-06-26 18:59] LABS: TOTAL CELLS COUNTED 100
[2017-06-26 20:26] LABS: URINE APPEARANCE CLEAR; URINE BILIRUBIN NEGATIVE (NEGATIVE); URINE BLOOD NEGATIVE (NEGATIVE); URINE COLOR AMBER; URINE GLUCOSE (UA) NEGATIVE (NEGATIVE); URINE KETONE TRACE (NEGATIVE); URINE NITRITE NEGATIVE (NEGATIVE)
[2017-06-26 20:41] LABS: URINE PROTEIN 1+ (NEGATIVE)
[2017-06-26 20:52] LABS: URINE BACTERIA RARE /hpf (NONE SEEN); URINE RBC 4 /hpf (0-3); URINE WBC <1 /hpf (3-5)
[2017-06-26 21:35] LABS: URINE LEUK ESTERASE Negative (NEGATIVE)
[2017-06-26] MEDS ORDERED: PATIENT'S OWN MEDICATION (NON-FORMULARY) (Insulin Glargine,Hum.Rec.Anlog [Toujeo Solostar] SQ SCH (22:00)
[2017-06-26] MEDS: MIRTAZAPINE 15 MG TABLET (FP) PO SCH (22:17)
[2017-06-26] MEDS: TAMSULOSIN HCL 0.4 MG CAP.ER.24H (FP) PO SCH (22:17)
[2017-06-26] MEDS: INSULIN DETEMIR 100 UNITS/ML MDV SQ SCH (22:18)
[2017-06-27] MEDS ORDERED: METHADONE HCL 5 MG TABLET ONE (04:09)
[2017-06-27] MEDS ORDERED: METHADONE HCL 10 MG TABLET ONE (04:09)
[2017-06-27] MEDS: METHADONE 10 MG, METHADONE 5 MG PO SCH (05:33)
[2017-06-27] MEDS: chlordiazePOXIDE HCL 25 MG CAPSULE PO SCH ×4 (05:33→22:24)
[2017-06-27] MEDS ORDERED: METHADONE HCL 10 MG TABLET PO SCH (06:00)
[2017-06-27] MEDS: INSULIN SLIDING SCALE (NOVOLOG) 1 VIAL SQ SCH ×3 (07:43→17:23)
[2017-06-27] MEDS: FOLIC ACID 1 MG TABLET (FP) PO SCH (10:32)
[2017-06-27] MEDS: HYDROCORTISONE 1% TOPICAL CREAM 30 GM TUBE TP SCH (10:32)
[2017-06-27] MEDS: amLODIPine BESYLATE 5 MG TABLET (FP) PO SCH (10:32)
[2017-06-27] MEDS: PRENATAL VITAMINS W/ FOLIC ACID TABLET (FP) PO SCH (10:32)
[2017-06-27] MEDS ORDERED: INSULIN (NOVOLOG) ASPART 100 UNITS/ML 10ML VIAL ONE ×2 (12:06→16:52)
--- NOTE | 2017-06-27 12:53 | EKG ---
Test Reason : Blood Pressure : / mmHG Vent. Rate : 102 BPM Atrial Rate : 102 BPM P-R Int : 124 ms QRS Dur : 086 ms QT Int : 388 ms P-R-T Axes : 045 009 004 degrees QTc Int : 505 ms SINUS TACHYCARDIA NONSPECIFIC ST ABNORMALITY WHEN COMPARED WITH ECG OF 15-DEC-2016 18:33, NO SIGNIFICANT CHANGE WAS FOUND Confirmed by DOT PRADO MD ([id number]) on 06/27/2017 12:53:24 PM Referred By: HENRIETTA BARAHONA Confirmed By:DOT PRADO MD
--- NOTE | 2017-06-27 15:01 | CONSULT ---
[facility] Psychiatric Consult - Data Date of interview: 06/27/17 Admission source: [facility] Identifying data: Readmission to [facility] for this 56 y/o male seeking detox treatment for alcohol and opioid dependence.Patient is ,a father of six,domiciled,unemployed and supported on SSI benefits. Substance Abuse History: Discussed with the patient.Addictions aknowledged. Smoking Cessation. Smoking history: Former smoker. Have you smoked in the past 12 months: No. Aproximately how many cigarettes per day: 1,993. If you are a former smoker, when did you quit?: 1992. Cigars Per Day: 0. Hx Chewing Tobacco Use: No. Initiated information on smoking cessation: No. 'Breaking Loose' booklet given: 06/26/17. - Substance & Tx. History. Hx Alcohol Use: Yes. Hx Substance Use: Yes. Substance Use Type: Alcohol, Heroin, Opiates, Prescribed. Hx Substance Use Treatment: Yes (MMTP). - Substances Abused. Alcohol-beer. Route: Oral. Frequency: Daily. Amount used: 6-10 (22 oz.). Age of first use: 15. Date of Last Use: 06/25/17 Medical History: Bronchial asthma,diabetes mellitus,hypertension,GERD,arthritis (both knees),cirrhosis of the liver,psoriasis,benign prostatic hyperplasia (self -report) and chronic pancreatitis. Psychiatric History: Psychiatric hospitalizations at [facility] (1995 ) and [facility] (2017) in [facility].Diagnosed with MDD.Maintained on methadone (15 mg/day) from the [facility] MMTP program ([place]).Mr Hernandez denies history of suicide attempts. Additional Comment: Urine Drug Screen Results: BZO-Benzodiazepines, MTD- Methadone Mental Status Exam - Mental Status Exam Alert and Oriented to: Time, Place, Person Cognitive Function: Good Patient Appearance: Well Groomed (obese) Mood: Hopeful, Euthymic Affect: Appropriate, Normal Range Patient Behavior: Fatigued, Appropriate, Cooperative Speech Pattern: Clear Voice Loudness: Normal Thought Process: Intact, Goal Oriented Thought Disorder: Not Present Hallucinations: Denies Suicidal Ideation: Denies Homicidal Ideation: Denies Insight/Judgement: Poor Sleep: Poorly, Difficulty falling asleep Appetite: Good Muscle strength/Tone: Normal (no complaint offered in this interview) Gait/Station: Normal (observed walking without cane) Psychiatric Findings - Problem List ([place] 1, 2,3) (1) Alcohol dependence with uncomplicated withdrawal Current Visit: Yes Status: Acute (2) Opioid dependence on agonist therapy Current Visit: Yes Status: Acute (3) Diabetes mellitus, type II, insulin dependent Current Visit: Yes Status: Chronic (4) Arthritis of both knees Current Visit: Yes Status: Chronic (5) Chronic pancreatitis Current Visit: Yes Status: Chronic Qualifiers: Pancreatitis type: alcohol induced Qualified Code(s): K86.0 - Alcohol-induced chronic pancreatitis; K86.0 - Alcohol-induced chronic pancreatitis; K86.0 - Alcohol-induced chronic pancreatitis; K86.0 - Alcohol- induced chronic pancreatitis (6) GERD (gastroesophageal reflux disease) Current Visit: Yes Status: Chronic Qualifiers: Esophagitis presence: without esophagitis Qualified Code(s): K21.9 - Gastro-esophageal reflux disease without esophagitis; K21.9 - Gastro- esophageal reflux disease without esophagitis; K21.9 - Gastro-esophageal reflux disease without esophagitis (7) Hypertension Current Visit: Yes Status: Chronic Qualifiers: Hypertension type: essential hypertension Qualified Code(s): I10 - Essential (primary) hypertension; I10 - Essential (primary) hypertension; I10 - Essential (primary) hypertension (8) Neuropathy Current Visit: No Status: Chronic (9) Asthma Current Visit: Yes Status: Chronic Qualifiers: Asthma severity: mild intermittent Asthma complication type: with status asthmaticus (10) Cirrhosis of liver Current Visit: Yes Status: Chronic Qualifiers: Hepatic cirrhosis type: alcoholic cirrhosis (11) Insomnia Current Visit: Yes Status: Acute - Initial Treatment Plan Initial Treatment Plan: Psychoeducation.Detoxification.Remeron 15 mg po hs for insomnia.Side effects/benefits discussed with the patient.He agrees with this plan of care.Observation.
--- NOTE | 2017-06-27 19:28 | PN ---
S CIWA - CIWA Score Nausea/Vomitin Muscle Tremors: None Anxiety: 3 Agitation: 3 Paroxysmal Sweats: 3 Orientation: 0-Oriented Tacttile Disturbances: 2-Mild Itch/Numbness/Burn Auditory Disturbances: 2-Mild Harshness/Frighten Visual Disturbances: 0-None Headache: 3-Moderate CIWA-Ar Total Score: 19 BHS Progress Note (SOAP) Subjective: Stomach Cramping, Nausea, Body Aches, H/A, Sweating. Objective: PT. A & O X 3, OBSERVED AMBULATING ON UNIT WITH ASSISTANCE OF A CANE. NO ACUTE DISTRESS. 06/27/17 19:25 Vital Signs Temperature 98.4 F 06/27/17 18:43 Pulse Rate 90 06/27/17 18:43 Respiratory Rate 16 06/27/17 18:43 Blood Pressure 108/60 06/27/17 18:43 O2 Sat by Pulse Oximetry (%) Laboratory Tests 06/26/17 06/26/17 06/26/17 11:09 14:00 14:00 WBC 1.8 L* D RBC 2.93 L Hgb 9.0 L D Hct 27.3 L D MCV 93.2 MCH 30.7 MCHC 32.9 RDW 15.9 Plt Count Total Counted 100 Neutrophils % (Manual) 78 Lymphocytes % (Manual) 16 Monocytes % (Manual) 6 Other Cell Type Platelet Estimate Markedly decreased Platelet Comment No clotting detected RBC Morphology Sodium 135 L Potassium 3.8 Chloride 101 Carbon Dioxide 26 Anion Gap 8 BUN 13 D Creatinine 0.9 D Creat Clearance w eGFR > 60 POC Glucometer 214 Random Glucose 285 H Calcium 8.1 L Total Bilirubin 2.1 H D AST 117 H ALT 54 Alkaline Phosphatase 164 H D Ammonia Total Protein 7.4 Albumin 2.1 L Urine Color Urine Appearance Urine pH Ur Specific [place] Urine Protein Urine Glucose (UA) Urine Ketones Urine Blood Urine Nitrite Urine Bilirubin Urine Urobilinogen Ur Leukocyte Esterase Urine RBC Urine WBC Urine Bacteria RPR Titer 06/26/17 06/26/17 06/26/17 14:00 14:00 17:21 WBC RBC Hgb Hct MCV MCH MCHC RDW Plt Count Total Counted Neutrophils % (Manual) Lymphocytes % (Manual) Monocytes % (Manual) Other Cell Type Platelet Estimate Platelet Comment RBC Morphology Sodium Potassium Chloride Carbon Dioxide Anion Gap BUN Creatinine Creat Clearance w eGFR POC Glucometer 167 Random Glucose Calcium Total Bilirubin AST ALT Alkaline Phosphatase Ammonia 70.83 H Total Protein Albumin Urine Color Urine Appearance Urine pH Ur Specific [place] Urine Protein Urine Glucose (UA) Urine Ketones Urine Blood Urine Nitrite Urine Bilirubin Urine Urobilinogen Ur Leukocyte Esterase Urine RBC Urine WBC Urine Bacteria RPR Titer Nonreactive 06/26/17 06/26/17 06/27/17 19:00 21:00 05:34 WBC RBC Hgb Hct MCV MCH MCHC RDW Plt Count Total Counted Neutrophils % (Manual) Lymphocytes % (Manual) Monocytes % (Manual) Other Cell Type Platelet Estimate Platelet Comment RBC Morphology Sodium Potassium Chloride Carbon Dioxide Anion Gap BUN Creatinine Creat Clearance w eGFR POC Glucometer 150 112 Random Glucose Calcium Total Bilirubin AST ALT Alkaline Phosphatase Ammonia Total Protein Albumin Urine Color Meg Urine Appearance Clear Urine pH 6.0 Ur Specific [place] 1.025 Urine Protein 1+ H Urine Glucose (UA) Negative Urine Ketones Trace H Urine Blood Negative Urine Nitrite Negative Urine Bilirubin Negative Urine Urobilinogen 2.0 Ur Leukocyte Esterase Negative Urine RBC 4 Urine WBC <1 Urine Bacteria Rare RPR Titer 06/27/17 06/27/17 06/27/17 08:00 12:03 16:29 WBC RBC Hgb Hct MCV MCH MCHC RDW Plt Count Total Counted Neutrophils % (Manual) Lymphocytes % (Manual) Monocytes % (Manual) Other Cell Type Platelet Estimate Platelet Comment RBC Morphology Sodium Potassium Chloride Carbon Dioxide Anion Gap BUN Creatinine Creat Clearance w eGFR POC Glucometer 318 167 Random Glucose Calcium Total Bilirubin AST ALT Alkaline Phosphatase Ammonia 133.5 H Total Protein Albumin Urine Color Urine Appearance Urine pH Ur Specific [place] Urine Protein Urine Glucose (UA) Urine Ketones Urine Blood Urine Nitrite Urine Bilirubin Urine Urobilinogen Ur Leukocyte Esterase Urine RBC Urine WBC Urine Bacteria RPR Titer LABS NOTED. Assessment: 06/27/17 19:26 WITHDRAWAL SYMPTOMS. Plan: CONTINUE DETOX. LACTULOSE, 20 GM PO X 1 NOW, THEN TID AFTER. REPEAT CBC ON 06/28/2017; REPEAT AMMONIA LEVEL ON 06/29/2017.
[2017-06-27] MEDS ORDERED: LACTULOSE 20 GM/30 ML UDC (FOR ORAL USE ONLY) PO ONE (19:32)
[2017-06-27] MEDS: MIRTAZAPINE 15 MG TABLET (FP) PO SCH (22:23)
[2017-06-27] MEDS: LACTULOSE 20 GM/30 ML UDC (FOR ORAL USE ONLY) PO SCH (22:23)
[2017-06-27] MEDS: TAMSULOSIN HCL 0.4 MG CAP.ER.24H (FP) PO SCH (22:24)
[2017-06-27] MEDS: INSULIN DETEMIR 100 UNITS/ML MDV SQ SCH (22:27)
[2017-06-28] MEDS ORDERED: METHADONE HCL 10 MG TABLET ONE (04:14)
[2017-06-28] MEDS ORDERED: METHADONE HCL 5 MG TABLET ONE (04:14)
[2017-06-28] MEDS: LACTULOSE 20 GM/30 ML UDC (FOR ORAL USE ONLY) PO SCH ×3 (05:22→21:30)
[2017-06-28] MEDS: METHADONE 10 MG, METHADONE 5 MG PO SCH (05:22)
[2017-06-28] MEDS: chlordiazePOXIDE HCL 25 MG CAPSULE PO SCH ×2 (05:22→10:11)
[2017-06-28] MEDS ORDERED: INSULIN (NOVOLOG) ASPART 100 UNITS/ML 10ML VIAL ONE ×2 (06:19→11:57)
[2017-06-28] MEDS: INSULIN SLIDING SCALE (NOVOLOG) 1 VIAL SQ SCH ×3 (08:22→17:18)
[2017-06-28] MEDS: HYDROCORTISONE 1% TOPICAL CREAM 30 GM TUBE TP SCH (10:11)
[2017-06-28] MEDS: amLODIPine BESYLATE 5 MG TABLET (FP) PO SCH (10:11)
[2017-06-28] MEDS: FOLIC ACID 1 MG TABLET (FP) PO SCH (10:11)
[2017-06-28] MEDS: PRENATAL VITAMINS W/ FOLIC ACID TABLET (FP) PO SCH (10:12)
--- NOTE | 2017-06-28 13:47 | PN ---
[facility] CIWA - CIWA Score Nausea/Vomitin-No Nausea/No Vomiting Muscle Tremors: 4-Moderate,w/Arms Extend Anxiety: 4-Mod. Anxious/Guarded Agitation: 4-Moderately Restless Paroxysmal Sweats: 1-Minimal Palms Moist Orientation: 0-Oriented Tacttile Disturbances: 2-Mild Itch/Numbness/Burn Auditory Disturbances: 0-None Visual Disturbances: 0-None Headache: 0-None Present CIWA-Ar Total Score: 15 BHS Progress Note (SOAP) Subjective: SLIGHT ANXIETY,SWEATS,TREMORS. Objective: 06/28/17 13:46 Vital Signs Temperature 97.6 F 06/28/17 10:04 Pulse Rate 115 H 06/28/17 10:04 Respiratory Rate 20 06/28/17 10:04 Blood Pressure 135/73 06/28/17 10:04 O2 Sat by Pulse Oximetry (%) Laboratory Last Values WBC 1.8 K/mm3 (4.0-10.0) L* D 06/26/17 14:00 RBC 2.93 M/mm3 (4.00-5.60) L 06/26/17 14:00 Hgb 9.0 GM/dL (11.7-16.9) L D 06/26/17 14:00 Hct 27.3 % (35.4-49) L D 06/26/17 14:00 MCV 93.2 fl (80-96) 06/26/17 14:00 MCH 30.7 pg (25.7-33.7) 06/26/17 14:00 MCHC 32.9 g/dl (32.0-35.9) 06/26/17 14:00 RDW 15.9 % (11.9-15.9) 06/26/17 14:00 Plt Count K/MM3 (134-434) 06/26/17 14:00 Total Counted 100 06/26/17 14:00 Neutrophils % (Manual) 78 % (42.8-82.8) 06/26/17 14:00 Lymphocytes % (Manual) 16 % (8-40) 06/26/17 14:00 Monocytes % (Manual) 6 % (3.8-10.2) 06/26/17 14:00 Other Cell Type 06/26/17 14:00 Platelet Estimate Markedly decreased (NORMAL) 06/26/17 14:00 Platelet Comment Slt plt clumping 06/26/17 14:00 Platelet Comment No clotting detected 06/26/17 14:00 RBC Morphology 06/26/17 14:00 Sodium 135 mmol/L (136-145) L 06/26/17 14:00 Potassium 3.8 mmol/L (3.5-5.1) 06/26/17 14:00 Chloride 101 mmol/L (98-107) 06/26/17 14:00 Carbon Dioxide 26 mmol/L (21-32) 06/26/17 14:00 Anion Gap 8 (8-16) 06/26/17 14:00 BUN 13 mg/dL (7-18) D 06/26/17 14:00 Creatinine 0.9 mg/dL (0.7-1.3) D 06/26/17 14:00 Creat Clearance w eGFR > 60 (>60) 06/26/17 14:00 POC Glucometer 222 UNITS (()) 06/28/17 11:48 Random Glucose 285 mg/dL (74-106) H 06/26/17 14:00 Calcium 8.1 mg/dL (8.5-10.1) L 06/26/17 14:00 Total Bilirubin 2.1 mg/dL (0.2-1.0) H D 06/26/17 14:00 AST 117 U/L (15-37) H 06/26/17 14:00 ALT 54 U/L (12-78) 06/26/17 14:00 Alkaline Phosphatase 164 U/L (45-117) H D 06/26/17 14:00 Ammonia 133.5 umol/L (11-32) H 06/27/17 08:00 Total Protein 7.4 g/dl (6.4-8.2) 06/26/17 14:00 Albumin 2.1 g/dl (3.4-5.0) L 06/26/17 14:00 Urine Color Meg 06/26/17 19:00 Urine Appearance Clear 06/26/17 19:00 Urine pH 6.0 (5.0-8.0) 06/26/17 19:00 Ur Specific [place] 1.025 (1.005-1.025) 06/26/17 19:00 Urine Protein 1+ (NEGATIVE) H 06/26/17 19:00 Urine Glucose (UA) Negative (NEGATIVE) 06/26/17 19:00 Urine Ketones Trace (NEGATIVE) H 06/26/17 19:00 Urine Blood Negative (NEGATIVE) 06/26/17 19:00 Urine Nitrite Negative (NEGATIVE) 06/26/17 19:00 Urine Bilirubin Negative (NEGATIVE) 06/26/17 19:00 Urine Urobilinogen 2.0 mg/dL (0.2-1.0) 06/26/17 19:00 Ur Leukocyte Esterase Negative (NEGATIVE) 06/26/17 19:00 Urine RBC 4 /hpf (0-3) 06/26/17 19:00 Urine WBC <1 /hpf (3-5) 06/26/17 19:00 Urine Bacteria Rare /hpf (NONE SEEN) 06/26/17 19:00 RPR Titer Nonreactive (NONREACTIVE) 06/26/17 14:00 Assessment: 06/28/17 13:47 WITHDRAWAL SX Plan: CONTINUE DETOX
[2017-06-28] MEDS: chlordiazePOXIDE 5 MG CAPSULE PO SCH ×2 (17:17→22:20)
[2017-06-28] MEDS ORDERED: ACETAMINOPHEN 325 MG TABLET (FP) PO ONE (17:34)
[2017-06-28] MEDS ORDERED: IBUPROFEN 400 MG TABLET (FP) PO PRN (21:22)
[2017-06-28] MEDS: INSULIN DETEMIR 100 UNITS/ML MDV SQ SCH (21:23)
[2017-06-28] MEDS: MIRTAZAPINE 15 MG TABLET (FP) PO SCH (21:31)
[2017-06-28] MEDS: TAMSULOSIN HCL 0.4 MG CAP.ER.24H (FP) PO SCH (21:31)
[2017-06-29] MEDS ORDERED: METHADONE HCL 10 MG TABLET ONE (04:03)
[2017-06-29] MEDS ORDERED: METHADONE HCL 5 MG TABLET ONE (04:03)
[2017-06-29] MEDS: chlordiazePOXIDE 5 MG CAPSULE PO SCH ×2 (05:17→10:22)
[2017-06-29] MEDS: METHADONE 10 MG, METHADONE 5 MG PO SCH (05:17)
[2017-06-29] MEDS: LACTULOSE 20 GM/30 ML UDC (FOR ORAL USE ONLY) PO SCH ×3 (05:19→22:38)
[2017-06-29] MEDS: INSULIN SLIDING SCALE (NOVOLOG) 1 VIAL SQ SCH ×3 (06:23→18:36)
[2017-06-29 09:49] LABS: MCH 30.4 pg (25.7-33.7); MCHC 32.6 g/dl (32.0-35.9); MEAN CELL VOLUME 93.3 fl (80-96); MEAN PLT VOLUME 8.1 fl (7.5-11.1); RDW 15.5 % (11.9-15.9)
[2017-06-29 10:02] LABS: INR 1.71 (0.82-1.09); PROTHROMBIN TIME (PATIENT) 19.3 SEC (9.98-11.88)
[2017-06-29 10:12] LABS: ALBUMIN 1.8 g/dl (3.4-5.0); ALK PHOS 155 U/L (45-117); ANION GAP 7 (8-16); BILIRUBIN,TOTAL 1.4 mg/dL (0.2-1.0); CALCIUM 7.7 mg/dL (8.5-10.1); CO2 24 mmol/L (21-32); CREATININE 0.7 mg/dL (0.7-1.3); GLUCOSE,RANDOM 154 mg/dL (74-106); SGOT/AST 105 U/L (15-37); SGPT/ALT 51 U/L (12-78); TOT PROT 6.8 g/dl (6.4-8.2)
[2017-06-29] MEDS: FOLIC ACID 1 MG TABLET (FP) PO SCH (10:22)
[2017-06-29] MEDS: amLODIPine BESYLATE 5 MG TABLET (FP) PO SCH (10:22)
[2017-06-29] MEDS: PRENATAL VITAMINS W/ FOLIC ACID TABLET (FP) PO SCH (10:23)
[2017-06-29] MEDS: HYDROCORTISONE 1% TOPICAL CREAM 30 GM TUBE TP SCH (10:23)
[2017-06-29 10:29] LABS: PLATELET COUNT 35 K/MM3 (134-434)
--- NOTE | 2017-06-29 11:00 | PN ---
B[facility] Progress Note (SOAP) Subjective: ANXIETY,SWEATS,SLIGHT TREMORS,TIREDNESS/LACK OF ENERGY,EXTREME DISTENDED ABDOMEN WITH C/O DISCOMFORT. OOB AMBULATING ON UNIT BUT EASILY TIRED WITH SLIGHT SOB. DENIES CHEST PAIN. PT DENIED ANY FORM OF BLEEDING. Objective: 06/29/17 10:57 Vital Signs Temperature 98.1 F 06/29/17 06:31 Pulse Rate 107 H 06/29/17 06:31 Respiratory Rate 18 06/29/17 06:31 Blood Pressure 135/77 06/29/17 06:31 O2 Sat by Pulse Oximetry (%) 95 Laboratory Last Values WBC 2.0 K/mm3 (4.0-10.0) L 06/29/17 07:00 RBC 2.95 M/mm3 (4.00-5.60) L 06/29/17 07:00 Hgb 9.0 GM/dL (11.7-16.9) L 06/29/17 07:00 Hct 27.6 % (35.4-49) L 06/29/17 07:00 MCV 93.3 fl (80-96) 06/29/17 07:00 MCH 30.4 pg (25.7-33.7) 06/29/17 07:00 MCHC 32.6 g/dl (32.0-35.9) 06/29/17 07:00 RDW 15.5 % (11.9-15.9) 06/29/17 07:00 Plt Count 35 K/MM3 (134-434) L* D 06/29/17 07:00 MPV 8.1 fl (7.5-11.1) D 06/29/17 07:00 Total Counted 100 06/26/17 14:00 Neutrophils % (Manual) 78 % (42.8-82.8) 06/26/17 14:00 Lymphocytes % (Manual) 16 % (8-40) 06/26/17 14:00 Monocytes % (Manual) 6 % (3.8-10.2) 06/26/17 14:00 Other Cell Type 06/26/17 14:00 Platelet Estimate Markedly decreased (NORMAL) 06/26/17 14:00 Platelet Comment Slt plt clumping 06/26/17 14:00 Platelet Comment No clotting detected 06/26/17 14:00 RBC Morphology 06/26/17 14:00 PT with INR 19.30 SEC (9.98-11.88) H 06/29/17 07:00 INR 1.71 (0.82-1.09) H 06/29/17 07:00 Sodium 139 mmol/L (136-145) 06/29/17 07:05 Potassium 3.6 mmol/L (3.5-5.1) 06/29/17 07:05 Chloride 108 mmol/L (98-107) H 06/29/17 07:05 Carbon Dioxide 24 mmol/L (21-32) 06/29/17 07:05 Anion Gap 7 (8-16) L 06/29/17 07:05 BUN 9 mg/dL (7-18) D 06/29/17 07:05 Creatinine 0.7 mg/dL (0.7-1.3) D 06/29/17 07:05 Creat Clearance w eGFR > 60 (>60) 06/29/17 07:05 POC Glucometer 149 UNITS (()) 06/29/17 05:16 Random Glucose 154 mg/dL (74-106) H D 06/29/17 07:05 Calcium 7.7 mg/dL (8.5-10.1) L 06/29/17 07:05 Total Bilirubin 1.4 mg/dL (0.2-1.0) H D 06/29/17 07:05 AST 105 U/L (15-37) H 06/29/17 07:05 ALT 51 U/L (12-78) 06/29/17 07:05 Alkaline Phosphatase 155 U/L (45-117) H 06/29/17 07:05 Ammonia 84.2 umol/L (11-32) H 06/29/17 07:00 Total Protein 6.8 g/dl (6.4-8.2) 06/29/17 07:05 Albumin 1.8 g/dl (3.4-5.0) L 06/29/17 07:05 Urine Color Meg 06/26/17 19:00 Urine Appearance Clear 06/26/17 19:00 Urine pH 6.0 (5.0-8.0) 06/26/17 19:00 Ur Specific [place] 1.025 (1.005-1.025) 06/26/17 19:00 Urine Protein 1+ (NEGATIVE) H 06/26/17 19:00 Urine Glucose (UA) Negative (NEGATIVE) 06/26/17 19:00 Urine Ketones Trace (NEGATIVE) H 06/26/17 19:00 Urine Blood Negative (NEGATIVE) 06/26/17 19:00 Urine Nitrite Negative (NEGATIVE) 06/26/17 19:00 Urine Bilirubin Negative (NEGATIVE) 06/26/17 19:00 Urine Urobilinogen 2.0 mg/dL (0.2-1.0) 06/26/17 19:00 Ur Leukocyte Esterase Negative (NEGATIVE) 06/26/17 19:00 Urine RBC 4 /hpf (0-3) 06/26/17 19:00 Urine WBC <1 /hpf (3-5) 06/26/17 19:00 Urine Bacteria Rare /hpf (NONE SEEN) 06/26/17 19:00 RPR Titer Nonreactive (NONREACTIVE) 06/26/17 14:00 ABNORMAL LAB RESULTS ABDOMEN: EXTREME DISTENSION-ASCITES NO OPEN CUTS OR BRUISES SEEN ON EXAMINATION OF PT'S SKIN. Assessment: 06/29/17 11:00 WITHDRAWAL SX PANCYTOPENIA ASCITES Plan: CONTINUE DETOX PT WILL BE EVALUATED IN THE ER TODAY. PT WILL FOLLOW UP WITH HIS PRIMARY CARE DOCTOR AT [facility](PT UNABLE TO GIVE CORRECT SPELLING OF PMD) AFTER EVALUATION AND POSSIBLE CORRECTION OF LOW HGB/HCT AND ELEVATED AMMONIA LEVEL. SPOKE WITH DR. WINCHESTER AT [facility] ER ABOUT PATIENTS CONDITION. TRANSFER PT TO [facility] BY AMBULANCE.
--- NOTE | 2017-06-29 11:19 | PN ---
[facility] Progress Note Note: labs noted, decision made for patient to complete detox as scheduled and will be discharged with lab results to follow up PCP tomorrow. Medically stable enough to complete detox. Will consider rehab if patient can participate fully.
[2017-06-29] MEDS ORDERED: FERROUS SO4 325 MG TABLET (FP) PO ONE (12:48)
--- NOTE | 2017-06-29 17:41 | PN ---
[facility] Progress Note Note: RECIEVED CALL FROM TOMAny CRUM RE: PT STATUS STATING LABS ARE BASELINE AND NO FEVER. PT DECLINED FURTHER INTERVENTION AND WILL PREFER TO FOLLOW UP WITH HIS LIVER DOCTOR IN [place] FOR MANAGEMENT OF HIS ASCITES. PT STATED TO DIRECTOR OF MUSIC EARLIER THIS MORNING HE HAS MONTHLY FOLLOW UPs AND WAS LAST TO HIS LIVER DOCTOR 3 WEEKS AGO AND IS DUE TO FOLLOW UP THIS WEEK. PT WILL BE BROUGHT BACK TO [facility] TODAY AND IS SCHEDULED FOR ROUTINE DISCHARGE TOMORROW MORNING.
[2017-06-29] MEDS ORDERED: INSULIN (NOVOLOG) ASPART 100 UNITS/ML 10ML VIAL ONE (18:32)
[2017-06-29] MEDS: chlordiazePOXIDE HCL 10 MG CAPSULE PO SCH ×2 (18:35→22:39)
[2017-06-29] MEDS: FERROUS SO4 325 MG TABLET (FP) PO SCH (18:36)
[2017-06-29] MEDS: INSULIN DETEMIR 100 UNITS/ML MDV SQ SCH (22:39)
[2017-06-29] MEDS: MIRTAZAPINE 15 MG TABLET (FP) PO SCH (22:39)
[2017-06-29] MEDS: TAMSULOSIN HCL 0.4 MG CAP.ER.24H (FP) PO SCH (22:39)
[2017-06-30] MEDS ORDERED: METHADONE HCL 10 MG TABLET ONE (02:51)
[2017-06-30] MEDS ORDERED: METHADONE HCL 5 MG TABLET ONE (02:52)
[2017-06-30] MEDS: chlordiazePOXIDE HCL 10 MG CAPSULE PO SCH ×2 (05:58→11:24)
[2017-06-30] MEDS: METHADONE 10 MG, METHADONE 5 MG PO SCH (05:58)
[2017-06-30] MEDS: LACTULOSE 20 GM/30 ML UDC (FOR ORAL USE ONLY) PO SCH (05:59)
[2017-06-30] MEDS ORDERED: INSULIN (NOVOLOG) ASPART 100 UNITS/ML 10ML VIAL ONE (06:21)
[2017-06-30] MEDS: FERROUS SO4 325 MG TABLET (FP) PO SCH ×2 (07:45→11:37)
[2017-06-30] MEDS: INSULIN SLIDING SCALE (NOVOLOG) 1 VIAL SQ SCH ×2 (07:45→11:24)
[2017-06-30 09:25] VITALS: BP 129/72; PULSE 120; TEMP 96.5
--- NOTE | 2017-06-30 11:10 | DS ---
[facility] Detox Discharge Summary Admission Date: 06/26/17 Discharge Date: 06/30/17 - History Present History: Alcohol Dependence, MMTP Additional Comments: DETOX COMPLETED. ALERT O X 3. PT STATES HE WILL BE SEEING HIS PMD DR. BROOKLYN SHRESTHA AT [address] [place] [address] THIS WEEK AFTER D/C FROM DETOX. Pertinent Past History: ASTHMA GERD HTN CIRRHOSIS OF LIVER NEUROPATHY BPH ANEMIA - Physical Exam Results Vital Signs: Vital Signs Temperature 96.5 F L 06/30/17 09:24 Pulse Rate 120 H 06/30/17 09:24 Respiratory Rate 18 06/30/17 09:24 Blood Pressure 129/72 06/30/17 09:24 O2 Sat by Pulse Oximetry (%) Pertinent Admission Physical Exam Findings: WITHDRAWAL SX Laboratory Tests 06/26/17 06/26/17 06/26/17 11:09 14:00 14:00 WBC 1.8 L* D RBC 2.93 L Hgb 9.0 L D Hct 27.3 L D MCV 93.2 MCH 30.7 MCHC 32.9 RDW 15.9 Plt Count MPV Total Counted 100 Neutrophils % (Manual) 78 Lymphocytes % (Manual) 16 Monocytes % (Manual) 6 Other Cell Type Platelet Estimate Markedly decreased Platelet Comment No clotting detected RBC Morphology PT with INR INR Sodium 135 L Potassium 3.8 Chloride 101 Carbon Dioxide 26 Anion Gap 8 BUN 13 D Creatinine 0.9 D Creat Clearance w eGFR > 60 POC Glucometer 214 Random Glucose 285 H Calcium 8.1 L Total Bilirubin 2.1 H D AST 117 H ALT 54 Alkaline Phosphatase 164 H D Ammonia Total Protein 7.4 Albumin 2.1 L Urine Color Urine Appearance Urine pH Ur Specific [place] Urine Protein Urine Glucose (UA) Urine Ketones Urine Blood Urine Nitrite Urine Bilirubin Urine Urobilinogen Ur Leukocyte Esterase Urine RBC Urine WBC Urine Bacteria RPR Titer 06/26/17 06/26/17 06/26/17 14:00 14:00 17:21 WBC RBC Hgb Hct MCV MCH MCHC RDW Plt Count MPV Total Counted Neutrophils % (Manual) Lymphocytes % (Manual) Monocytes % (Manual) Other Cell Type Platelet Estimate Platelet Comment RBC Morphology PT with INR INR Sodium Potassium Chloride Carbon Dioxide Anion Gap BUN Creatinine Creat Clearance w eGFR POC Glucometer 167 Random Glucose Calcium Total Bilirubin AST ALT Alkaline Phosphatase Ammonia 70.83 H Total Protein Albumin Urine Color Urine Appearance Urine pH Ur Specific Cross Urine Protein Urine Glucose (UA) Urine Ketones Urine Blood Urine Nitrite Urine Bilirubin Urine Urobilinogen Ur Leukocyte Esterase Urine RBC Urine WBC Urine Bacteria RPR Titer Nonreactive 06/26/17 06/26/17 06/27/17 19:00 21:00 05:34 WBC RBC Hgb Hct MCV MCH MCHC RDW Plt Count MPV Total Counted Neutrophils % (Manual) Lymphocytes % (Manual) Monocytes % (Manual) Other Cell Type Platelet Estimate Platelet Comment RBC Morphology PT with INR INR Sodium Potassium Chloride Carbon Dioxide Anion Gap BUN Creatinine Creat Clearance w eGFR POC Glucometer 150 112 Random Glucose Calcium Total Bilirubin AST ALT Alkaline Phosphatase Ammonia Total Protein Albumin Urine Color Meg Urine Appearance Clear Urine pH 6.0 Ur Specific [place] 1.025 Urine Protein 1+ H Urine Glucose (UA) Negative Urine Ketones Trace H Urine Blood Negative Urine Nitrite Negative Urine Bilirubin Negative Urine Urobilinogen 2.0 Ur Leukocyte Esterase Negative Urine RBC 4 Urine WBC <1 Urine Bacteria Rare RPR Titer 06/27/17 06/27/17 06/27/17 08:00 12:03 16:29 WBC RBC Hgb Hct MCV MCH MCHC RDW Plt Count MPV Total Counted Neutrophils % (Manual) Lymphocytes % (Manual) Monocytes % (Manual) Other Cell Type Platelet Estimate Platelet Comment RBC Morphology PT with INR INR Sodium Potassium Chloride Carbon Dioxide Anion Gap BUN Creatinine Creat Clearance w eGFR POC Glucometer 318 167 Random Glucose Calcium Total Bilirubin AST ALT Alkaline Phosphatase Ammonia 133.5 H Total Protein Albumin Urine Color Urine Appearance Urine pH Ur Specific [place] Urine Protein Urine Glucose (UA) Urine Ketones Urine Blood Urine Nitrite Urine Bilirubin Urine Urobilinogen Ur Leukocyte Esterase Urine RBC Urine WBC Urine Bacteria RPR Titer 06/27/17 06/28/17 06/28/17 21:15 05:23 11:48 WBC RBC Hgb Hct MCV MCH MCHC RDW Plt Count MPV Total Counted Neutrophils % (Manual) Lymphocytes % (Manual) Monocytes % (Manual) Other Cell Type Platelet Estimate Platelet Comment RBC Morphology PT with INR INR Sodium Potassium Chloride Carbon Dioxide Anion Gap BUN Creatinine Creat Clearance w eGFR POC Glucometer 148 121 222 Random Glucose Calcium Total Bilirubin AST ALT Alkaline Phosphatase Ammonia Total Protein Albumin Urine Color Urine Appearance Urine pH Ur Specific [place] Urine Protein Urine Glucose (UA) Urine Ketones Urine Blood Urine Nitrite Urine Bilirubin Urine Urobilinogen Ur Leukocyte Esterase Urine RBC Urine WBC Urine Bacteria RPR Titer 06/28/17 06/28/17 06/29/17 16:24 21:15 05:16 WBC RBC Hgb Hct MCV MCH MCHC RDW Plt Count MPV Total Counted Neutrophils % (Manual) Lymphocytes % (Manual) Monocytes % (Manual) Other Cell Type Platelet Estimate Platelet Comment RBC Morphology PT with INR INR Sodium Potassium Chloride Carbon Dioxide Anion Gap BUN Creatinine Creat Clearance w eGFR POC Glucometer 128 182 149 Random Glucose Calcium Total Bilirubin AST ALT Alkaline Phosphatase Ammonia Total Protein Albumin Urine Color Urine Appearance Urine pH Ur Specific [place] Urine Protein Urine Glucose (UA) Urine Ketones Urine Blood Urine Nitrite Urine Bilirubin Urine Urobilinogen Ur Leukocyte Esterase Urine RBC Urine WBC Urine Bacteria RPR Titer 06/29/17 06/29/17 06/29/17 07:00 07:00 07:00 WBC 2.0 L RBC 2.95 L Hgb 9.0 L Hct 27.6 L MCV 93.3 MCH 30.4 MCHC 32.6 RDW 15.5 Plt Count 35 L* D MPV 8.1 D Total Counted Neutrophils % (Manual) Lymphocytes % (Manual) Monocytes % (Manual) Other Cell Type Platelet Estimate Platelet Comment RBC Morphology PT with INR 19.30 H INR 1.71 H Sodium Potassium Chloride Carbon Dioxide Anion Gap BUN Creatinine Creat Clearance w eGFR POC Glucometer Random Glucose Calcium Total Bilirubin AST ALT Alkaline Phosphatase Ammonia 84.2 H Total Protein Albumin Urine Color Urine Appearance Urine pH Ur Specific [place] Urine Protein Urine Glucose (UA) Urine Ketones Urine Blood Urine Nitrite Urine Bilirubin Urine Urobilinogen Ur Leukocyte Esterase Urine RBC Urine WBC Urine Bacteria RPR Titer 06/29/17 06/29/17 06/29/17 07:05 11:30 18:25 WBC RBC Hgb Hct MCV MCH MCHC RDW Plt Count MPV Total Counted Neutrophils % (Manual) Lymphocytes % (Manual) Monocytes % (Manual) Other Cell Type Platelet Estimate Platelet Comment RBC Morphology PT with INR INR Sodium 139 Potassium 3.6 Chloride 108 H Carbon Dioxide 24 Anion Gap 7 L BUN 9 D Creatinine 0.7 D Creat Clearance w eGFR > 60 POC Glucometer 275 254 Random Glucose 154 H D Calcium 7.7 L Total Bilirubin 1.4 H D AST 105 H ALT 51 Alkaline Phosphatase 155 H Ammonia Total Protein 6.8 Albumin 1.8 L Urine Color Urine Appearance Urine pH Ur Specific [place] Urine Protein Urine Glucose (UA) Urine Ketones Urine Blood Urine Nitrite Urine Bilirubin Urine Urobilinogen Ur Leukocyte Esterase Urine RBC Urine WBC Urine Bacteria RPR Titer 06/29/17 06/30/17 21:51 06:00 WBC RBC Hgb Hct MCV MCH MCHC RDW Plt Count MPV Total Counted Neutrophils % (Manual) Lymphocytes % (Manual) Monocytes % (Manual) Other Cell Type Platelet Estimate Platelet Comment RBC Morphology PT with INR INR Sodium Potassium Chloride Carbon Dioxide Anion Gap BUN Creatinine Creat Clearance w eGFR POC Glucometer 215 146 Random Glucose Calcium Total Bilirubin AST ALT Alkaline Phosphatase Ammonia Total Protein Albumin Urine Color Urine Appearance Urine pH Ur Specific [place] Urine Protein Urine Glucose (UA) Urine Ketones Urine Blood Urine Nitrite Urine Bilirubin Urine Urobilinogen Ur Leukocyte Esterase Urine RBC Urine WBC Urine Bacteria RPR Titer COPY OF LAB RESULTS GIVEN TO PATIENT FOR HIS PRIMARY CARE DOCTOR VISIT. - Treatment Hospital Course: Detox Protocol Followed, Detoxed Safely, Responded well, Discharged Condition Good, Rehab Referral Accepted Patient has Accepted a Rehab Referral to: [facility] IOP - Medication Discharge Medications: Ambulatory Orders Insulin (Novolog) [Novolog Flexpen] 0 units SQ ACHS 12/15/16 Omeprazole 20 mg PO DAILY 12/15/16 Albuterol Sulfate Inhaler - [Ventolin HFA Inhaler -] 2 puff IH Q4H PRN #1 inhaler 12/19/16 Tamsulosin HCl [Flomax -] 0.4 mg PO HS #30 tab 12/19/16 Amlodipine Besylate [Norvasc -] 5 mg PO DAILY 06/26/17 Folic Acid - 1 mg PO DAILY 06/26/17 Hydrocortisone 1% Cream [Hytone 1% Cream -] 1 applic TP DAILY 06/26/17 Insulin Glargine,Hum.rec.anlog [Donnell Walker] 50 unit SQ HS 06/26/17 Mirtazapine [Remeron -] 15 mg PO HS 06/26/17 Multivitamins [Tab-A-Vit -] 1 tab PO DAILY 06/26/17 Nitroglycerin [Nitrostat] 0.4 mg SL PRN PRN 06/26/17 Thiamine HCl [Vitamin B1] 100 mg PO DAILY 06/26/17 Mirtazapine [Remeron -] 15 mg PO HS #30 tablet 06/27/17 - Diagnosis (1) Alcohol dependence with uncomplicated withdrawal Current Visit: Yes Status: Acute (2) Use of cane as ambulatory aid Current Visit: Yes Status: Chronic (3) Arthritis of both knees Current Visit: Yes Status: Chronic (4) Asthma Current Visit: Yes Status: Chronic Qualifiers: Asthma severity: mild Asthma complication type: uncomplicated (5) Cirrhosis of liver Current Visit: Yes Status: Chronic Qualifiers: Hepatic cirrhosis type: alcoholic cirrhosis (6) GERD (gastroesophageal reflux disease) Current Visit: Yes Status: Chronic Qualifiers: Esophagitis presence: esophagitis presence not specified Qualified Code(s): K21.9 - Gastro-esophageal reflux disease without esophagitis; K21.9 - Gastro-esophageal reflux disease without esophagitis; K21.9 - Gastro-esophageal reflux disease without esophagitis (7) Hypertension Current Visit: Yes Status: Chronic Qualifiers: Hypertension type: essential hypertension Qualified Code(s): I10 - Essential (primary) hypertension; I10 - Essential (primary) hypertension; I10 - Essential (primary) hypertension (8) Methadone maintenance therapy patient Current Visit: Yes Status: Chronic (9) Neuropathy Current Visit: Yes Status: Chronic - AMA Did Patient Leave Against Medical Advice: No
[2017-06-30] MEDS: FOLIC ACID 1 MG TABLET (FP) PO SCH (11:22)
[2017-06-30] MEDS: HYDROCORTISONE 1% TOPICAL CREAM 30 GM TUBE TP SCH (11:23)
[2017-06-30] MEDS: amLODIPine BESYLATE 5 MG TABLET (FP) PO SCH (11:24)
[2017-06-30] MEDS: PRENATAL VITAMINS W/ FOLIC ACID TABLET (FP) PO SCH (11:24)
== END 2017-06-30 12:51 | disposition home or self-care (01) | DRG 773 ==
LOC: YASAS 07:47 → Y3N 14:53
PROVIDERS: ADMIT Internal Medicine; ATTEND Internal Medicine
PROC: HZ2ZZZZ Detoxification Services for Substance Abuse Treatment (ICD-10-PCS; principal; 2017-06-26)
DX: F11.20 Opioid dependence, uncomplicated (principal); F10.230 Alcohol dependence with withdrawal, uncomplicated; F32.9 Major depressive disorder, single episode, unspecified; I10 Essential (primary) hypertension; E11.9 Type 2 diabetes mellitus without complications; Z79.4 Long term (current) use of insulin; K21.9 Gastro-esophageal reflux disease without esophagitis; I20.8 Other forms of angina pectoris; G47.00 Insomnia, unspecified; G62.9 Polyneuropathy, unspecified; J45.20 Mild intermittent asthma, uncomplicated; Z86.69 Personal history of other diseases of the nervous system and sense organs; R26.89 Other abnormalities of gait and mobility; Z99.89 Dependence on other enabling machines and devices
CPT/HCPCS: 36415; 80053; 81003; 81015; 82140; 85027; 85610; 86593; 93005; 93010

== ENCOUNTER 2017-06-29 13:50 | Emergency (ER) | payer OTHER ==
[2017-06-29 14:17] VITALS: TEMP 98.4; BMI 32.1
[2017-06-29] MEDS ORDERED: morphine CARPU-JECT 4 MG/1 ML DISP.SYRIN IVPUSH ONE (14:17)
[2017-06-29] MEDS ORDERED: ONDANSETRON 4 MG/2 ML VIAL IVPUSH ONE (14:17)
--- NOTE | 2017-06-29 14:24 | PDOC ---
History of Present Illness - General Chief Complaint: Pain Stated Complaint: EVALUATION for high [place]/low [place]/wbc Time Seen by Provider: 06/29/17 14:12 History Source: Patient - History of Present Illness Timing/Duration: reports: constant Quality: reports: severe Abdominal Pain Onset Location: reports: RUQ Past History - Past Medical History Allergies/Adverse Reactions: Allergies Allergy/AdvReac Type Severity Reaction Status Date / Time aspirin Allergy Severe Hives Verified 06/29/17 14:13 seafood Allergy Severe Hives Uncoded 06/29/17 14:13 Home Medications: Ambulatory Orders Insulin (Novolog) [Novolog Flexpen] 0 units SQ ACHS 12/15/16 Omeprazole 20 mg PO DAILY 12/15/16 Albuterol Sulfate Inhaler - [Ventolin HFA Inhaler -] 2 puff IH Q4H PRN #1 inhaler 12/19/16 Tamsulosin HCl [Flomax -] 0.4 mg PO HS #30 tab 12/19/16 Amlodipine Besylate [Norvasc -] 5 mg PO DAILY 06/26/17 Folic Acid - 1 mg PO DAILY 06/26/17 Hydrocortisone 1% Cream [Hytone 1% Cream -] 1 applic TP DAILY 06/26/17 Insulin Glargine,Hum.rec.anlog [Toujeo Solostar] 50 unit SQ HS 06/26/17 Mirtazapine [Remeron -] 15 mg PO HS 06/26/17 Multivitamins [Tab-A-Vit -] 1 tab PO DAILY 06/26/17 Nitroglycerin [Nitrostat] 0.4 mg SL PRN PRN 06/26/17 Thiamine HCl [Vitamin B1] 100 mg PO DAILY 06/26/17 Mirtazapine [Remeron -] 15 mg PO HS #30 tablet 06/27/17 Anemia: No Asthma: Yes Cancer: No Cardiac Disorders: Yes (angina) CVA: No COPD: No CHF: No Dementia: No Diabetes: Yes (IDDM) GI Disorders: Yes (acid reflux) Disorders: No HTN: Yes Hypercholesterolemia: No Kidney Stones: No Liver Disease: Yes Seizures: Yes (alcohol related-last episode was in 01/2017) Thyroid Disease: No - Surgical History Abdominal Surgery: No Appendectomy: No Cardiac Surgery: No Cholecystectomy: No Lung Surgery: No Neurologic Surgery: No Orthopedic Surgery: Yes (fx, left ankle) - Reproductive History Testicular Surgery: No - Suicide/Smoking/Psychosocial Hx Smoking History: Never smoked Have you smoked in the past 12 months: No Number of Cigarettes Smoked Daily: 0 If you are a former smoker, when did you quit?: 1993 Cigars Per Day: 0 Information on smoking cessation initiated: No 'Breaking Loose' booklet given: 06/26/17 Hx Alcohol Use: Yes Drug/Substance Use Hx: Yes Substance Use Type: Alcohol, Heroin, Opiates, Prescribed Hx Substance Use Treatment: Yes (MMTP) Abd/GI Specific PMHX - Complaint Specific PMHX Hepatitis: Yes (hepatitis c) Pancreatitis: No Review of Systems - Review of Systems Constitutional: No: Chills, Fever Respiratory: No: Shortness of Breath Cardiac (ROS): No: Chest Pain ABD/GI: Yes: Nausea. No: Blood Streaked Bowels, Diarrhea, Vomiting, Tarry Stools : No: Dysuria *Physical Exam - Vital Signs Last Vital Signs Temp Pulse Resp BP Pulse Ox 98.4 F 104 H 18 123/76 96 06/29/17 14:14 06/29/17 14:14 06/29/17 14:14 06/29/17 14:14 06/29/17 14:14 - Physical Exam General Appearance: Yes: Appropriately Dressed, Severe Distress HEENT: positive: Normal Voice Neck: positive: Supple Respiratory/Chest: positive: Lungs Clear, Normal Breath Sounds. negative: Respiratory Distress Cardiovascular: positive: S1, S2, Tachycardia Gastrointestinal/Abdominal: positive: Tender, Other (tense ascites w/ diffuse ttp) Musculoskeletal: negative: CVA Tenderness Integumentary: positive: Dry, Warm Neurologic: positive: Fully Oriented, Alert, Normal Mood/Affect ED Treatment Course - LABORATORY CBC & Chemistry Diagram: 06/29/17 14:17 06/29/17 14:17 Medical Decision Making - Medical Decision Making 06/29/17 14:18 6-year-old male history of anxiety, depression, HTN, opioid abuse, chronic alcoholism, cirrhosis C/B ascites, no h/o SBP or varices, states he had his very first LVP at another hospital in [place] 2 weeks ago, currently inpatient at [facility] detox facility and sent in for abd pain w/ weakness and nausea. Pt reports severe pain to RUQ today, similar to pain in the past. Denies vomiting, change in BM, BRBPR, melena, dysuria, f/c, SOB or CP. See exam Abd pain in pt w/ etoh cirrhosis Recurrent S/p LVP at OSH 2 weeks ago, denies h/o SBP Pain possibly 2/2 tense ascites on exam, r/o SBP -pain control -labs -paracentesis -may need admission for therapeutic LVP 06/29/17 15:04 06/29/17 15:05 06/29/17 15:48 Patient requesting to be discharged. States pain has resolved and he does not want further intervention or management at this time. Pt now informs me that he is scheduled to be discharged from [facility] tomorrow and is planning on following up with his liver doctor this week. I contacted [facility] and made staff aware of disposition. As per ESPERANZA Saravia, patient cleared to return to facility 06/29/17 16:00 *DC/Admit/Observation/Transfer Diagnosis at time of Disposition: Abdominal pain Qualifiers: Abdominal location: right upper quadrant Qualified Code(s): R10.11 - Right upper quadrant pain; R10.11 - Right upper quadrant pain - Discharge Dispostion Disposition: HOME Condition at time of disposition: Good - Patient Instructions Additional Instructions: You labs were baseline today. The source of your pain is unclear as you declined further testing/evaluation at this time. It is possible that your pain could be because of your significant ascites. Please follow up with your liver doctor in [place] for possible LVP this week
[2017-06-29] MEDS ORDERED: LIDOCAINE HCL 2% (20ML MULTI-DOSE VIAL) NR ONE (14:42)
[2017-06-29 14:43] LABS: BASOPHIL 0.6 % (0-2.0); EOSINOPHIL 4.1 % (0-4.5); MCH 30.3 pg (25.7-33.7); MCHC 32.2 g/dl (32.0-35.9); MEAN PLT VOLUME 8.5 fl (7.5-11.1); NEUTROPHILS 58.5 % (42.8-82.8); PLATELET COUNT 63 K/MM3 (134-434)
[2017-06-29] MEDS ORDERED: morphine CARPU-JECT 10 MG/1 ML DISP.SYRIN ONE (14:43)
[2017-06-29] MEDS ORDERED: ONDANSETRON 4 MG/2 ML VIAL ONE (14:43)
[2017-06-29 15:07] LABS: ALBUMIN 1.9 g/dl (3.4-5.0); ALK PHOS 162 U/L (45-117); ANION GAP 8 (8-16); BILIRUBIN,TOTAL 1.3 mg/dL (0.2-1.0); CALCIUM 7.6 mg/dL (8.5-10.1); CO2 23 mmol/L (21-32); CREATININE 0.8 mg/dL (0.7-1.3); GLUCOSE,RANDOM 248 mg/dL (74-106); SGPT/ALT 58 U/L (12-78); TOT PROT 7.4 g/dl (6.4-8.2)
[2017-06-29 15:16] LABS: SGOT/AST 123 U/L (15-37)
[2017-06-29 15:43] LABS: INR 1.75 (0.82-1.09); PROTHROMBIN TIME (PATIENT) 19.8 SEC (9.98-11.88)
[2017-06-29 18:03] VITALS: BP 123/69; PULSE 100
== END 2017-06-29 18:04 | disposition home or self-care (01) ==
LOC: JER 13:50
PROC: 3E033NZ Introduction of Analgesics, Hypnotics, Sedatives into Peripheral Vein, Percutaneous Approach (ICD-10-PCS; principal; 2017-06-29)
PROC: 3E033GC Introduction of Other Therapeutic Substance into Peripheral Vein, Percutaneous Approach (ICD-10-PCS; 2017-06-29)
DX: R10.11 Right upper quadrant pain (principal); K70.31 Alcoholic cirrhosis of liver with ascites; I10 Essential (primary) hypertension; F41.8 Other specified anxiety disorders; F11.20 Opioid dependence, uncomplicated
CPT/HCPCS: 36415; 80053; 82140; 85025; 85610; 96374; 96375; 99283-25

== ENCOUNTER 2018-01-18 14:17 | Inpatient (IN) | payer OTHER ==
[2018-01-18 15:45] VITALS: BMI 28.0
--- NOTE | 2018-01-18 17:29 | HP ---
CIWA Score - CIWA Score Nausea/Vomitin Muscle Tremors: 3 Anxiety: 2 Agitation: 1-Slight > Activity Paroxysmal Sweats: 1-Minimal Palms Moist Orientation: 0-Oriented Tacttile Disturbances: 0-None Auditory Disturbances: 0-None Visual Disturbances: 0-None Headache: 2-Mild CIWA-Ar Total Score: 12 Admission ROS BHS - HPI Allergies/Adverse Reactions: Allergies Allergy/AdvReac Type Severity Reaction Status Date / Time aspirin Allergy Severe Hives Verified 01/18/18 16:52 seafood Allergy Severe Hives Uncoded 01/18/18 16:52 History of Present Illness: Patient presents with ETOH withdrawal symptoms. Patient has attempted detox here at [facility] in past, 06/2017. Patient started drinking at age 11. Drinkes up to 4 -5 48 ounces of beer. Was recently in ER at [facility] one week ago. Treated for ETOH withdrawal in ER. Also is in MMTP at [facility]. Methadone dose 4mg. Verification pending by RN. Patient has history of seizures from ETOH use/withdrawal. Last seizure 01/2017. Patient has history of depression , cirrhosis of liver and Hepatitis C. Pt denies SI/HI and suicide attempts. Exam Limitations: Intoxication, Physical Impairment (Ambulates with cane) - Ebola screening Have you traveled outside of the country in the last 21 days: No Have you had contact with anyone from an Ebola affected area: No Have you been sick,other than usual withdrawal symptoms: No Do you have a fever: No - Review of Systems Constitutional: Night Sweats, Changes in sleep, Unexplained wgt Loss EENT: reports: No Symptoms Reported Respiratory: reports: No Symptoms reported Cardiac: reports: Chest Tightness GI: reports: Diarrhea, Nausea, Poor Fluid Intake, Tarry Stools : reports: No Symptoms Reported Musculoskeletal: reports: Back Pain Integumentary: reports: No Symptoms Reported Neuro: reports: Headache, Seizure, Tremors Endocrine: reports: Unexplained Weight Loss Hematology: reports: No Symptoms Reported Psychiatric: reports: Orientated x3, Anxious, Depressed Patient History - Patient Medical History Hx Anemia: No Hx Asthma: Yes Hx Chronic Obstructive Pulmonary Disease (COPD): No Hx Cancer: No Hx Cardiac Disorders: Yes (angina) Hx Congestive Heart Failure: No Hx Hypertension: Yes Hx Hypercholesterolemia: No Hx Pacemaker: No HX Cerebrovascular Accident: No Hx Seizures: Yes (alcohol related-last episode was in 01/2017) Hx Dementia: No Hx Diabetes: Yes (IDDM) Hx Gastrointestinal Disorders: Yes (acid reflux) Hx Liver Disease: Yes (Cirrhosis of liver, Hepatitis C) Hx Genitourinary Disorders: No Hx Sexually Transmitted Disorders: No Hx Renal Disease (ESRD): No Hx Thyroid Disease: No Hx Human Immunodeficiency Virus (HIV): No Hx Hepatitis C: Yes Hx Depression: Yes Hx Suicide Attempt: No Hx Bipolar Disorder: No Hx Schizophrenia: No - Patient Surgical History Past Surgical History: Yes Hx Neurologic Surgery: No Hx Cataract Extraction: No Hx Cardiac Surgery: No Hx Lung Surgery: No Hx Breast Surgery: No Hx Breast Biopsy: No Hx Abdominal Surgery: No Hx Appendectomy: No Hx Cholecystectomy: No Hx Genitourinary Surgery: No Hx Section: No Hx Orthopedic Surgery: Yes (fx, left ankle) Anesthesia Reaction: No - PPD History Date: 12/17/16 Results: 0 mm PPD to be Administered?: Yes - Smoking Cessation Smoking history: Never smoked Have you smoked in the past 12 months: No Aproximately how many cigarettes per day: 0 If you are a former smoker, when did you quit?: 1992 Cigars Per Day: 0 Hx Chewing Tobacco Use: No - Substance & Tx. History Hx Alcohol Use: Yes Hx Substance Use: No Hx Substance Use Treatment: Yes - Substances Abused Alcohol Route: Oral Frequency: Daily Amount used: 840OZ Age of first use: 11 Date of Last Use: 01/18/18 Family Disease History - Family Disease History Family Disease History: Diabetes: Mother, Sister, Other: Father (alcoholic ) Admission Physical Exam S - Vital Signs Vital Signs: Vital Signs - 24 hr 01/18/18 15:42 Temperature 97.0 F L Pulse Rate 84 Respiratory 18 Rate Blood Pressure 132/71 - Physical General Appearance: Yes: Disheveled, Alcohol on Breath, Sweating, Anxious HEENTM: Yes: EOMI, Hearing grossly Normal, Normocephalic, HOLGER, Pharynx Normal Respiratory: Yes: Chest Non-Tender, Lungs Clear, Normal Breath Sounds, No Respiratory Distress, No Accessory Muscle Use Neck: Yes: No masses,lesions,Nodules, Supple Breast: Yes: Breast Exam Deferred Cardiology: Yes: Regular Rate, S1, S2 Abdominal: Yes: Normal Bowel Sounds, Distended Genitourinary: Yes: Within Normal Limits Back: Yes: Normal Inspection Musculoskeletal: Yes: Back pain Extremities: Yes: Non-Tender, Tremors, Swelling Neurological: 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: 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 NML intact, Fully Oriented, Alert, Depressed Affect Integumentary: Yes: Normal Color, Warm, Moist Lymphatic: Yes: Within Normal Limits - Diagnostic (1) Alcohol dependence with uncomplicated withdrawal Current Visit: Yes Status: Acute (2) Opioid dependence on agonist therapy Current Visit: Yes Status: Chronic (3) Asthma Current Visit: Yes Status: Chronic Qualifiers: Asthma severity: mild Asthma complication type: uncomplicated (4) Chronic pancreatitis Current Visit: No Status: Chronic Qualifiers: Pancreatitis type: alcohol induced Qualified Code(s): K86.0 - Alcohol- induced chronic pancreatitis (5) Cirrhosis of liver Current Visit: Yes Status: Chronic Qualifiers: Hepatic cirrhosis type: alcoholic cirrhosis Ascites presence: unspecified Qualified Code(s): K70.30 - Alcoholic cirrhosis of liver without ascites (6) Diabetes mellitus, type II, insulin dependent Current Visit: Yes Status: Chronic (7) Hypertension Current Visit: Yes Status: Chronic Qualifiers: Hypertension type: essential hypertension Qualified Code(s): I10 - Essential (primary) hypertension (8) Use of cane as ambulatory aid Current Visit: Yes Status: Chronic Cleared for Admission [facility] - Detox or Rehab [facility] Level of Care: Medically Managed Detox Regimen/Protocol: Librium [facility] Breath Alcohol Content Breath Alcohol Content: 0.072 Urine Drug Screen - Results Drug Screen Negative: No Urine Drug Screen Results: BZO-Benzodiazepines, MTD-Methadone
[2018-01-18] MEDS ORDERED: MAG HYDROX/AL HYDROX/SIMETH 30 ML UNIT-DOSE CUP PO PRN (17:46)
[2018-01-18] MEDS ORDERED: LOPERAMIDE HCL 2 MG CAPSULE PO PRN (17:46)
[2018-01-18] MEDS ORDERED: MENTHOL/PHENOL 1 EACH UD MM PRN (17:46)
[2018-01-18] MEDS ORDERED: hydrOXYzine PAMOATE 50 MG CAPSULE (FP) PO PRN (17:46)
[2018-01-18] MEDS ORDERED: ACETAMINOPHEN 325 MG TABLET (FP) PO PRN (17:46)
[2018-01-18] MEDS ORDERED: guaiFENesin/D-METHORPHAN HB 10 ML UNIT-DOSE CUPS PO PRN (17:46)
[2018-01-18] MEDS ORDERED: MAGNESIUM CITRATE 300 ML BOTTLE PO PRN (17:46)
[2018-01-18] MEDS ORDERED: MAGNESIUM HYDROX 2400MG/30ML ORAL SUSPENSION 30 ML CUP PO PRN (17:46)
[2018-01-18] MEDS ORDERED: P-EPHED 60MG/TRIPROLIDI 2.5MG TABLET PO PRN (17:46)
[2018-01-18] MEDS ORDERED: ALBUTEROL SO4 18 GM HFA INHALER IH PRN (17:49)
[2018-01-18] MEDS ORDERED: chlordiazePOXIDE HCL 25 MG CAPSULE PO ONE (17:50)
[2018-01-18] MEDS ORDERED: chlordiazePOXIDE HCL 25 MG CAPSULE PO PRN (17:50)
[2018-01-18] MEDS ORDERED: MELATONIN 5 MG TABLETS PO PRN (22:00)
[2018-01-18] MEDS: chlordiazePOXIDE HCL 25 MG CAPSULE PO SCH (22:26)
[2018-01-18] MEDS: THIAMINE HCL 100 MG TABLET (FP) PO SCH (22:26)
[2018-01-18] MEDS ORDERED: INSULIN (NOVOLOG) ASPART 100 UNITS/ML 10ML VIAL ONE (22:28)
[2018-01-18] MEDS: INSULIN SLIDING SCALE (NOVOLOG) 1 VIAL SQ SCH (22:29)
[2018-01-18 23:09] LABS: URINE APPEARANCE CLEAR; URINE BILIRUBIN NEGATIVE (<2.0 mg/dL); URINE COLOR AMBER; URINE GLUCOSE (UA) NEGATIVE (NEGATIVE); URINE KETONE NEGATIVE (NEGATIVE); URINE LEUK ESTERASE NEGATIVE (NEGATIVE); URINE NITRITE NEGATIVE (NEGATIVE); URINE PROTEIN NEGATIVE (NEGATIVE); URINE UROBILINOGEN 4.0 E.U/dl mg/dL (0.2-1.0)
[2018-01-19] MEDS: chlordiazePOXIDE HCL 25 MG CAPSULE PO SCH ×4 (05:56→22:27)
[2018-01-19] MEDS: INSULIN SLIDING SCALE (NOVOLOG) 1 VIAL SQ SCH ×4 (07:33→22:50)
--- NOTE | 2018-01-19 09:43 | PN ---
S CIWA - CIWA Score Nausea/Vomitin-Mild Nausea/No Vomiting Muscle Tremors: 3 Anxiety: 3 Agitation: 3 Paroxysmal Sweats: 1-Minimal Palms Moist Orientation: 0-Oriented Tacttile Disturbances: 0-None Auditory Disturbances: 0-None Visual Disturbances: 0-None Headache: 0-None Present CIWA-Ar Total Score: 11 BHS Progress Note (SOAP) Subjective: sweat tremor anxiety restlessness mild gi distress Objective: 01/19/18 09:46 Vital Signs Temperature 97.7 F 01/19/18 09:26 Pulse Rate 74 01/19/18 09:26 Respiratory Rate 18 01/19/18 09:26 Blood Pressure 131/70 01/19/18 09:26 O2 Sat by Pulse Oximetry (%) Laboratory Last Values POC Glucometer 99 UNITS (80-120) 01/19/18 05:56 Urine Color Meg 01/18/18 18:17 Urine Appearance Clear 01/18/18 18:17 Urine pH 6.0 (5.0-8.0) 01/18/18 18:17 Ur Specific [place] 1.019 (1.001-1.035) 01/18/18 18:17 Urine Protein Negative (NEGATIVE) 01/18/18 18:17 Urine Glucose (UA) Negative (NEGATIVE) 01/18/18 18:17 Urine Ketones Negative (NEGATIVE) 01/18/18 18:17 Urine Blood Negative (NEGATIVE) 01/18/18 18:17 Urine Nitrite Negative (NEGATIVE) 01/18/18 18:17 Urine Bilirubin Negative (<2.0 mg/dL) 01/18/18 18:17 Urine Urobilinogen 4.0 e.u/dl mg/dL (0.2-1.0) 01/18/18 18:17 Ur Leukocyte Esterase Negative (NEGATIVE) 01/18/18 18:17 lab noted Assessment: 01/19/18 09:47 withdrawal sx Plan: continue detox
--- NOTE | 2018-01-19 09:53 | EKG ---
Test Reason : Blood Pressure : / mmHG Vent. Rate : 082 BPM Atrial Rate : 082 BPM P-R Int : 134 ms QRS Dur : 078 ms QT Int : 418 ms P-R-T Axes : 059 023 036 degrees QTc Int : 488 ms NORMAL SINUS RHYTHM PROLONGED QT ABNORMAL ECG NONSPECIFIC T WAVE ABNORMALITY Confirmed by MD Jose Eduardo, Kade ([id number]) on 01/19/2018 9:52:59 AM Referred By: Confirmed By:Kade Whitt MD
[2018-01-19 09:57] LABS: CHLORIDE 102 mmol/L (98-107); SODIUM 134 mmol/L (136-145)
[2018-01-19 10:05] LABS: ALBUMIN 2.5 g/dl (3.4-5.0); ALK PHOS 275 U/L (45-117); ANION GAP 3 (8-16); BILIRUBIN,TOTAL 2.6 mg/dL (0.2-1.0); BLOOD UREA NITROGEN 10 mg/dL (7-18); CO2 29 mmol/L (21-32); CREATININE 0.7 mg/dL (0.7-1.3); GLUCOSE,RANDOM 275 mg/dL (74-106); SGOT/AST 90 U/L (15-37); SGPT/ALT 48 U/L (12-78); TOT PROT 7.9 g/dl (6.4-8.2)
[2018-01-19 10:22] LABS: HEMATOCRIT 29.9 % (35.4-49); HEMOGLOBIN 10.1 GM/dL (11.7-16.9); MCH 31.6 pg (25.7-33.7); MEAN CELL VOLUME 92.9 fl (80-96); MEAN PLT VOLUME 8.3 fl (7.5-11.1); PLATELET COUNT 61 K/MM3 (134-434); RBC 3.21 M/mm3 (4.00-5.60); RDW 18.3 % (11.9-15.9); WHITE BLOOD COUNT 2.6 K/mm3 (4.0-10.0)
--- NOTE | 2018-01-19 10:32 | CONSULT ---
[facility] Psychiatric Consult - Data Date of interview: 01/19/18 Admission source: [facility] Identifying data: Patient is a 57 year old male, divorved, domiciled, father of three, and currently unemployed. This is one of multiple admissions for patient. Pt. admitted to for alcohol dependence. Substance Abuse History: Following information confirmed with Mr. Hernandez: Smoking Cessation. Smoking history: Never smoked. Have you smoked in the past 12 months: No. Aproximately how many cigarettes per day: 0. If you are a former smoker, when did you quit?: 1992. Cigars Per Day: 0. Hx Chewing Tobacco Use: No. - Substance & Tx. History. Hx Alcohol Use: Yes. Hx Substance Use: No. Hx Substance Use Treatment: Yes. - Substances Abused. Alcohol. Route: Oral. Frequency: Daily. Amount used: 8/40OZ. Age of first use: 11. Date of Last Use: 01/18/18 Medical History: Asthma, Angina, hypertension, Seziures (r/t ETOH on 01/2017), Diabetes, Acid reflux, Cirrhosis of the liver, Hep C Psychiatric History: Patient is guarded and presents as a poor historian. Pt. reports h/o psychiatric hospitalizations but is unable to recall the names of the hospitals in which he was hospitalized. As per Dr. Richards notes on patient reported "Psychiatric hospitalizations at [facility] (1995 ) and [facility] (2016) in [facility].Diagnosed with MDD." Patient reports medication and outpatient nonadherence. Pt. denies h/o suicide attempt. Physical/Sexual Abuse/Trauma History: Denies. Mental Status Exam - Mental Status Exam Alert and Oriented to: Time, Place, Person Cognitive Function: Good Patient Appearance: Unkempt Mood: Withdrawn Affect: Mood Congruent Patient Behavior: Fatigued, Guarded Speech Pattern: Delayed Voice Loudness: Normal Thought Process: Goal Oriented Thought Disorder: Not Present Hallucinations: Denies Suicidal Ideation: Denies Homicidal Ideation: Denies Insight/Judgement: Poor Sleep: Poorly Appetite: Fair Muscle strength/Tone: Normal Gait/Station: Other (Did not observe patient's gait.) Psychiatric Findings - Problem List ([place] 1, 2,3) (1) Substance induced mood disorder Current Visit: Yes Status: Acute (2) Alcohol dependence with uncomplicated withdrawal Current Visit: Yes Status: Acute (3) Opioid dependence on agonist therapy Current Visit: Yes Status: Chronic (4) Insomnia Current Visit: Yes Status: Acute - Initial Treatment Plan Initial Treatment Plan: Psychoeducation provided. Detoxification in progress. Chart reviewed. Mirtzapine 15mg ordered. Benefits and side effects discussed. Verbal consent given. Will continue to monitor.
[2018-01-19] MEDS: amLODIPine BESYLATE 5 MG TABLET (FP) PO SCH (10:34)
[2018-01-19] MEDS: PRENATAL VITAMINS W/ FOLIC ACID TABLET (FP) PO SCH (10:34)
[2018-01-19] MEDS ORDERED: INSULIN (NOVOLOG) ASPART 100 UNITS/ML 10ML VIAL ONE ×2 (11:38→17:12)
[2018-01-19] MEDS: METHADONE HCL 5 MG TABLET PO SCH (12:32)
[2018-01-19] MEDS: THIAMINE HCL 100 MG TABLET (FP) PO SCH (22:26)
[2018-01-19] MEDS: MIRTAZAPINE 15 MG TABLET (FP) PO SCH (22:26)
[2018-01-20] MEDS: chlordiazePOXIDE HCL 25 MG CAPSULE PO SCH ×3 (06:05→17:29)
[2018-01-20] MEDS: INSULIN SLIDING SCALE (NOVOLOG) 1 VIAL SQ SCH ×4 (06:16→22:51)
[2018-01-20] MEDS: METHADONE HCL 5 MG TABLET PO SCH (10:10)
[2018-01-20] MEDS: PRENATAL VITAMINS W/ FOLIC ACID TABLET (FP) PO SCH (10:10)
[2018-01-20] MEDS: amLODIPine BESYLATE 5 MG TABLET (FP) PO SCH (10:10)
[2018-01-20] MEDS ORDERED: INSULIN (NOVOLOG) ASPART 100 UNITS/ML 10ML VIAL ONE ×2 (11:48→22:06)
--- NOTE | 2018-01-20 11:58 | PN ---
[facility] CIWA - CIWA Score Nausea/Vomitin-No Nausea/No Vomiting Muscle Tremors: 3 Anxiety: 3 Agitation: 3 Paroxysmal Sweats: 1-Minimal Palms Moist Orientation: 0-Oriented Tacttile Disturbances: 0-None Auditory Disturbances: 0-None Visual Disturbances: 0-None Headache: 0-None Present CIWA-Ar Total Score: 10 S Progress Note (SOAP) Subjective: sweat tremor anxiety restlessness Objective: 01/20/18 11:59 Vital Signs Temperature 97.9 F 01/20/18 09:08 Pulse Rate 86 01/20/18 09:08 Respiratory Rate 18 01/20/18 09:08 Blood Pressure 109/51 01/20/18 09:08 O2 Sat by Pulse Oximetry (%) Laboratory Last Values WBC 2.6 K/mm3 (4.0-10.0) L 01/19/18 07:30 RBC 3.21 M/mm3 (4.00-5.60) L 01/19/18 07:30 Hgb 10.1 GM/dL (11.7-16.9) L 01/19/18 07:30 Hct 29.9 % (35.4-49) L 01/19/18 07:30 MCV 92.9 fl (80-96) 01/19/18 07:30 MCH 31.6 pg (25.7-33.7) 01/19/18 07:30 MCHC 34.0 g/dl (32.0-35.9) 01/19/18 07:30 RDW 18.3 % (11.9-15.9) H D 01/19/18 07:30 Plt Count 61 K/MM3 (134-434) L 01/19/18 07:30 MPV 8.3 fl (7.5-11.1) 01/19/18 07:30 Sodium 134 mmol/L (136-145) L 01/19/18 07:30 Potassium 4.0 mmol/L (3.5-5.1) 01/19/18 07:30 Chloride 102 mmol/L (98-107) 01/19/18 07:30 Carbon Dioxide 29 mmol/L (21-32) D 01/19/18 07:30 Anion Gap 3 (8-16) L 01/19/18 07:30 BUN 10 mg/dL (7-18) D 01/19/18 07:30 Creatinine 0.7 mg/dL (0.7-1.3) 01/19/18 07:30 Creat Clearance w eGFR > 60 (>60) 01/19/18 07:30 POC Glucometer 121 UNITS (80-120) 01/20/18 06:04 Random Glucose 275 mg/dL (74-106) H 01/19/18 07:30 Calcium 8.0 mg/dL (8.5-10.1) L 01/19/18 07:30 Total Bilirubin 2.6 mg/dL (0.2-1.0) H D 01/19/18 07:30 AST 90 U/L (15-37) H D 01/19/18 07:30 ALT 48 U/L (12-78) 01/19/18 07:30 Alkaline Phosphatase 275 U/L (45-117) H D 01/19/18 07:30 Total Protein 7.9 g/dl (6.4-8.2) 01/19/18 07:30 Albumin 2.5 g/dl (3.4-5.0) L D 01/19/18 07:30 Urine Color Meg 01/18/18 18:17 Urine Appearance Clear 01/18/18 18:17 Urine pH 6.0 (5.0-8.0) 01/18/18 18:17 Ur Specific [place] 1.019 (1.001-1.035) 01/18/18 18:17 Urine Protein Negative (NEGATIVE) 01/18/18 18:17 Urine Glucose (UA) Negative (NEGATIVE) 01/18/18 18:17 Urine Ketones Negative (NEGATIVE) 01/18/18 18:17 Urine Blood Negative (NEGATIVE) 01/18/18 18:17 Urine Nitrite Negative (NEGATIVE) 01/18/18 18:17 Urine Bilirubin Negative (<2.0 mg/dL) 01/18/18 18:17 Urine Urobilinogen 4.0 e.u/dl mg/dL (0.2-1.0) 01/18/18 18:17 Ur Leukocyte Esterase Negative (NEGATIVE) 01/18/18 18:17 RPR Titer Nonreactive (NONREACTIVE) 01/19/18 07:30 lab noted repeat cbc Assessment: 01/20/18 12:02 withdrawal sx Plan: continue detox
--- NOTE | 2018-01-20 14:00 | EKG ---
Test Reason : Blood Pressure : / mmHG Vent. Rate : 086 BPM Atrial Rate : 086 BPM P-R Int : 138 ms QRS Dur : 086 ms QT Int : 416 ms P-R-T Axes : 054 021 033 degrees QTc Int : 497 ms NORMAL SINUS RHYTHM PROLONGED QT ABNORMAL ECG WHEN COMPARED WITH ECG OF 18-JAN-2018 18:34, NO SIGNIFICANT CHANGE WAS FOUND Confirmed by HARPAL HART MD ([id number]) on 01/20/2018 2:00:19 PM Referred By: Confirmed By:HARPAL HART MD
[2018-01-20] MEDS: chlordiazePOXIDE 5 MG CAPSULE PO SCH (22:51)
[2018-01-20] MEDS: MIRTAZAPINE 15 MG TABLET (FP) PO SCH (22:51)
[2018-01-20] MEDS: THIAMINE HCL 100 MG TABLET (FP) PO SCH (22:51)
[2018-01-21] MEDS: chlordiazePOXIDE 5 MG CAPSULE PO SCH ×3 (05:35→17:54)
[2018-01-21] MEDS: INSULIN SLIDING SCALE (NOVOLOG) 1 VIAL SQ SCH ×4 (08:05→22:27)
[2018-01-21 10:03] LABS: BASO % 0.9 % (0-2.0); EOS % 2.6 % (0-4.5); HEMATOCRIT 29.9 % (35.4-49); MCH 31.7 pg (25.7-33.7); MCHC 33.5 g/dl (32.0-35.9); MEAN CELL VOLUME 94.9 fl (80-96); MONO % 10.1 % (3.8-10.2); NEUT % 70.4 % (42.8-82.8); RBC 3.15 M/mm3 (4.00-5.60); RDW 18.6 % (11.9-15.9); WHITE BLOOD COUNT 3.6 K/mm3 (4.0-10.0)
--- NOTE | 2018-01-21 10:11 | PN ---
[facility] Progress Note (SOAP) Subjective: feeling better less sweat no tremor tolerated food and fluid well sleep throughout the night Objective: 01/21/18 10:08 Vital Signs Temperature 97.2 F L 01/21/18 09:15 Pulse Rate 87 01/21/18 09:15 Respiratory Rate 20 01/21/18 09:15 Blood Pressure 103/52 01/21/18 09:15 O2 Sat by Pulse Oximetry (%) Laboratory Last Values WBC 2.6 K/mm3 (4.0-10.0) L 01/19/18 07:30 RBC 3.21 M/mm3 (4.00-5.60) L 01/19/18 07:30 Hgb 10.1 GM/dL (11.7-16.9) L 01/19/18 07:30 Hct 29.9 % (35.4-49) L 01/19/18 07:30 MCV 92.9 fl (80-96) 01/19/18 07:30 MCH 31.6 pg (25.7-33.7) 01/19/18 07:30 MCHC 34.0 g/dl (32.0-35.9) 01/19/18 07:30 RDW 18.3 % (11.9-15.9) H D 01/19/18 07:30 Plt Count 61 K/MM3 (134-434) L 01/19/18 07:30 MPV 8.3 fl (7.5-11.1) 01/19/18 07:30 Sodium 134 mmol/L (136-145) L 01/19/18 07:30 Potassium 4.0 mmol/L (3.5-5.1) 01/19/18 07:30 Chloride 102 mmol/L (98-107) 01/19/18 07:30 Carbon Dioxide 29 mmol/L (21-32) D 01/19/18 07:30 Anion Gap 3 (8-16) L 01/19/18 07:30 BUN 10 mg/dL (7-18) D 01/19/18 07:30 Creatinine 0.7 mg/dL (0.7-1.3) 01/19/18 07:30 Creat Clearance w eGFR > 60 (>60) 01/19/18 07:30 POC Glucometer 119 UNITS (80-120) 01/21/18 05:34 Random Glucose 275 mg/dL (74-106) H 01/19/18 07:30 Calcium 8.0 mg/dL (8.5-10.1) L 01/19/18 07:30 Total Bilirubin 2.6 mg/dL (0.2-1.0) H D 01/19/18 07:30 AST 90 U/L (15-37) H D 01/19/18 07:30 ALT 48 U/L (12-78) 01/19/18 07:30 Alkaline Phosphatase 275 U/L (45-117) H D 01/19/18 07:30 Total Protein 7.9 g/dl (6.4-8.2) 01/19/18 07:30 Albumin 2.5 g/dl (3.4-5.0) L D 01/19/18 07:30 Urine Color Meg 01/18/18 18:17 Urine Appearance Clear 01/18/18 18:17 Urine pH 6.0 (5.0-8.0) 01/18/18 18:17 Ur Specific [place] 1.019 (1.001-1.035) 01/18/18 18:17 Urine Protein Negative (NEGATIVE) 01/18/18 18:17 Urine Glucose (UA) Negative (NEGATIVE) 01/18/18 18:17 Urine Ketones Negative (NEGATIVE) 01/18/18 18:17 Urine Blood Negative (NEGATIVE) 01/18/18 18:17 Urine Nitrite Negative (NEGATIVE) 01/18/18 18:17 Urine Bilirubin Negative (<2.0 mg/dL) 01/18/18 18:17 Urine Urobilinogen 4.0 e.u/dl mg/dL (0.2-1.0) 01/18/18 18:17 Ur Leukocyte Esterase Negative (NEGATIVE) 01/18/18 18:17 RPR Titer Nonreactive (NONREACTIVE) 01/19/18 07:30 lab noted Assessment: 01/21/18 10:10 mild withdrawal sx Plan: medically supervised detox
[2018-01-21] MEDS: PRENATAL VITAMINS W/ FOLIC ACID TABLET (FP) PO SCH (10:52)
[2018-01-21] MEDS: amLODIPine BESYLATE 5 MG TABLET (FP) PO SCH (10:52)
[2018-01-21] MEDS: METHADONE HCL 5 MG TABLET PO SCH (10:52)
[2018-01-21] MEDS ORDERED: INSULIN (NOVOLOG) ASPART 100 UNITS/ML 10ML VIAL ONE (11:52)
[2018-01-21 12:16] LABS: PLATELET ESTIMATE DECREASED
[2018-01-21] MEDS: chlordiazePOXIDE HCL 10 MG CAPSULE PO SCH (22:29)
[2018-01-21] MEDS: MIRTAZAPINE 15 MG TABLET (FP) PO SCH (22:29)
[2018-01-21] MEDS: THIAMINE HCL 100 MG TABLET (FP) PO SCH (22:29)
[2018-01-22] MEDS: chlordiazePOXIDE HCL 10 MG CAPSULE PO SCH ×2 (05:37→10:09)
[2018-01-22 06:22] VITALS: PULSE 100
[2018-01-22] MEDS: INSULIN SLIDING SCALE (NOVOLOG) 1 VIAL SQ SCH (08:10)
[2018-01-22 09:19] VITALS: BP 134/74; TEMP 98.6
--- NOTE | 2018-01-22 10:05 | DS ---
[facility] Detox Discharge Summary Admission Date: 01/18/18 Discharge Date: 01/22/18 - History Present History: Alcohol Dependence Additional Comments: 57 years old male admitted on 01/18/18 for alcohol withdrawal sx completed alcohol detox regimen tolerated well denies alcohol withdrawal sx alert oriented x 3 no acute distress patient agrees to go to [facility] patient wants to remain sober by attending [facility] - Physical Exam Results Vital Signs: Vital Signs Temperature 98.6 F 01/22/18 09:16 Pulse Rate 100 H 01/22/18 09:16 Respiratory Rate 18 01/22/18 09:16 Blood Pressure 134/74 01/22/18 09:16 O2 Sat by Pulse Oximetry (%) Pertinent Admission Physical Exam Findings: withdrawal sx Vital Signs Temperature 98.6 F 01/22/18 09:16 Pulse Rate 100 H 01/22/18 09:16 Respiratory Rate 18 01/22/18 09:16 Blood Pressure 134/74 01/22/18 09:16 O2 Sat by Pulse Oximetry (%) Laboratory Last Values WBC 3.6 K/mm3 (4.0-10.0) L D 01/21/18 07:00 RBC 3.15 M/mm3 (4.00-5.60) L 01/21/18 07:00 Hgb 10.0 GM/dL (11.7-16.9) L 01/21/18 07:00 Hct 29.9 % (35.4-49) L 01/21/18 07:00 MCV 94.9 fl (80-96) 01/21/18 07:00 MCH 31.7 pg (25.7-33.7) 01/21/18 07:00 MCHC 33.5 g/dl (32.0-35.9) 01/21/18 07:00 RDW 18.6 % (11.9-15.9) H 01/21/18 07:00 Plt Count No Result Required. 01/21/18 07:00 [facility] 01/21/18 07:00 Neutrophils % 70.4 % (42.8-82.8) D 01/21/18 07:00 Lymphocytes % 16.0 % (8-40) D 01/21/18 07:00 Monocytes % 10.1 % (3.8-10.2) 01/21/18 07:00 Eosinophils % 2.6 % (0-4.5) 01/21/18 07:00 Basophils % 0.9 % (0-2.0) 01/21/18 07:00 Platelet Estimate Decreased 01/21/18 07:00 Platelet Comment Marked plt clumping 01/21/18 07:00 Sodium 134 mmol/L (136-145) L 01/19/18 07:30 Potassium 4.0 mmol/L (3.5-5.1) 01/19/18 07:30 Chloride 102 mmol/L (98-107) 01/19/18 07:30 Carbon Dioxide 29 mmol/L (21-32) D 01/19/18 07:30 Anion Gap 3 (8-16) L 01/19/18 07:30 BUN 10 mg/dL (7-18) D 01/19/18 07:30 Creatinine 0.7 mg/dL (0.7-1.3) 01/19/18 07:30 Creat Clearance w eGFR > 60 (>60) 01/19/18 07:30 POC Glucometer 126 UNITS (80-120) 01/22/18 05:39 Random Glucose 275 mg/dL (74-106) H 01/19/18 07:30 Calcium 8.0 mg/dL (8.5-10.1) L 01/19/18 07:30 Total Bilirubin 2.6 mg/dL (0.2-1.0) H D 01/19/18 07:30 AST 90 U/L (15-37) H D 01/19/18 07:30 ALT 48 U/L (12-78) 01/19/18 07:30 Alkaline Phosphatase 275 U/L (45-117) H D 01/19/18 07:30 Total Protein 7.9 g/dl (6.4-8.2) 01/19/18 07:30 Albumin 2.5 g/dl (3.4-5.0) L D 01/19/18 07:30 Urine Color Meg 01/18/18 18:17 Urine Appearance Clear 01/18/18 18:17 Urine pH 6.0 (5.0-8.0) 01/18/18 18:17 Ur Specific [place] 1.019 (1.001-1.035) 01/18/18 18:17 Urine Protein Negative (NEGATIVE) 01/18/18 18:17 Urine Glucose (UA) Negative (NEGATIVE) 01/18/18 18:17 Urine Ketones Negative (NEGATIVE) 01/18/18 18:17 Urine Blood Negative (NEGATIVE) 01/18/18 18:17 Urine Nitrite Negative (NEGATIVE) 01/18/18 18:17 Urine Bilirubin Negative (<2.0 mg/dL) 01/18/18 18:17 Urine Urobilinogen 4.0 e.u/dl mg/dL (0.2-1.0) 01/18/18 18:17 Ur Leukocyte Esterase Negative (NEGATIVE) 01/18/18 18:17 RPR Titer Nonreactive (NONREACTIVE) 01/19/18 07:30 lab noted - Treatment Hospital Course: Detox Protocol Followed, Detoxed Safely, Responded well, Discharged Condition Good, Rehab Referral Accepted Patient has Accepted a Rehab Referral to: [facility] - Medication Discharge Medications: Ambulatory Orders Insulin (Novolog) [Novolog Flexpen -] 0 units SQ ACHS 12/15/16 Insulin Glargine,Hum.rec.anlog [Toujeo Solostar] 50 unit SQ HS 06/26/17 Mirtazapine [Remeron -] 15 mg PO HS 06/26/17 Methadone HCl [Dolophine HCl] 4 mg PO DAILY 01/19/18 Albuterol Sulfate Inhaler - [Ventolin HFA Inhaler -] 2 puff IH Q4H PRN #1 inhaler 01/21/18 Amlodipine Besylate [Norvasc -] 5 mg PO DAILY #30 tablet 01/21/18 - Diagnosis (1) Alcohol dependence with uncomplicated withdrawal Current Visit: Yes Status: Acute (2) Diabetes mellitus, type II, insulin dependent Current Visit: Yes Status: Chronic (3) Hypertension Current Visit: Yes Status: Chronic Qualifiers: Hypertension type: essential hypertension Qualified Code(s): I10 - Essential (primary) hypertension (4) Use of cane as ambulatory aid Current Visit: Yes Status: Chronic (5) GERD (gastroesophageal reflux disease) Current Visit: Yes Status: Chronic Qualifiers: Esophagitis presence: esophagitis presence not specified Qualified Code(s) : K21.9 - Gastro-esophageal reflux disease without esophagitis (6) Methadone maintenance therapy patient Current Visit: Yes Status: Chronic - AMA Did Patient Leave Against Medical Advice: No
[2018-01-22] MEDS: PRENATAL VITAMINS W/ FOLIC ACID TABLET (FP) PO SCH (10:09)
[2018-01-22] MEDS: METHADONE HCL 5 MG TABLET PO SCH (10:09)
[2018-01-22] MEDS: amLODIPine BESYLATE 5 MG TABLET (FP) PO SCH (10:09)
== END 2018-01-22 09:10 | disposition home or self-care (01) | DRG 773 ==
LOC: YASAS 14:17 → Y6N 17:16
PROVIDERS: ADMIT Surgery; ATTEND Surgery
PROC: HZ2ZZZZ Detoxification Services for Substance Abuse Treatment (ICD-10-PCS; principal; 2018-01-18)
DX: F11.20 Opioid dependence, uncomplicated (principal); F10.230 Alcohol dependence with withdrawal, uncomplicated; F19.24 Other psychoactive substance dependence with psychoactive substance-induced mood disorder; G47.00 Insomnia, unspecified; I10 Essential (primary) hypertension; E11.9 Type 2 diabetes mellitus without complications; Z79.4 Long term (current) use of insulin; K86.0 Alcohol-induced chronic pancreatitis; K70.30 Alcoholic cirrhosis of liver without ascites; R26.89 Other abnormalities of gait and mobility; Z99.89 Dependence on other enabling machines and devices
CPT/HCPCS: 36415; 80053; 81003; 82962; 85025; 85027; 86593; 93005; 93010